=== PATIENT | male | born 1995 | race Caucasian/White ===

== ENCOUNTER 2017-12-22 21:44 | Inpatient (IN) | payer MEDICAID ==
[~2017-12-22] VITALS: Ht 172.7 cm; Wt 67.5 kg
[~2017-12-22 21:44] MED LIST: AMLO10TA4 PO; CALC0.258 PO; CALC500T11 PO; LABE100T PO; PRAV20TA PO; SIRO0.5T PO; TACR1CAP28 PO
[2017-12-22 22:27] LABS: BASOPHILS # (AUTO) 0.1 X10'3 (0-0.2); BASOPHILS % (AUTO) 0.8 % (0-1); EOSINOPHILS # (AUTO) 0.6 X10'3 (0-0.9); EOSINOPHILS % (AUTO) 6.3 % (0-6); HEMATOCRIT 28.3 % (42.0-52.0); HEMOGLOBIN 9.3 g/dl (14.0-17.9); LYMPHOCYTES # (AUTO) 1.5 X10'3 (1.1-4.8); LYMPHOCYTES % (AUTO) 15.3 % (21-51); MEAN CORPUSCULAR HEMOGLOBIN 28.1 PG (27.0-31.0); MEAN CORPUSCULAR HGB CONC 32.8 % (33.0-36.5); MEAN CORPUSCULAR VOLUME 85.7 FL (78-98); MEAN PLATELET VOLUME 7.5 FL (7.4-10.4); MONOCYTES # (AUTO) 0.9 X10'3 (0-0.9); MONOCYTES % (AUTO) 9.2 % (2-12); NEUTROPHILS # (AUTO) 6.6 X10'3 (1.8-7.7); NEUTROPHILS % (AUTO) 68.4 % (42-75); PLATELET COUNT 426 X10'3 (140-440); RED BLOOD COUNT 3.31 X10'6 (4.70-6.10); RED CELL DISTRIBUTION WIDTH 16.7 % (11.5-14.5); WHITE BLOOD COUNT 9.7 X10'3 (4.5-11.0)
[2017-12-22 22:37] LABS: INR 1.1 INR; PROTHROMBIN TIME 11.2 SECONDS (9.0-12.0)
[2017-12-22 22:44] LABS: ALANINE AMINOTRANSFERASE 20 U/L (12-78); ALBUMIN 2.1 G/DL (3.4-5.0); ALBUMIN/GLOBULIN RATIO 0.5 (1.1-1.5); ALKALINE PHOSPHATASE 78 IU/L (46-116); ANION GAP 12 (8-16); ASPARTATE AMINO TRANSFERASE 31 U/L (10-37); BILIRUBIN,TOTAL 0.4 MG/DL (0.1-1.0); BLOOD UREA NITROGEN 49 MG/DL (7-18); BUN/CREATININE RATIO 4.3 (5.4-32.0); CHLORIDE 101 MMOL/L (99-107); GLUCOSE 104 MG/DL (70-104); POTASSIUM 4.2 MMOL/L (3.5-5.1); SODIUM 143 MMOL/L (135-145); TOTAL CARBON DIOXIDE 29.8 MMOL/L (24-32); TOTAL PROTEIN 6.6 G/DL (6.4-8.2); eGFR 6 ML/MIN
[2017-12-22] MEDS ORDERED: nitroGLYCERIN 1gm ointment UD TP ONE (23:10)
[2017-12-22] MEDS ORDERED: iohexol 350MG/ML 100ml bottle IV ONE (23:15)
[2017-12-22 23:21] LABS: CLARITY,URINE CLOUDY (Clear); COLOR,URINE RED (Yellow); UA COLLECTION TYPE STRAIGHT CATH
[2017-12-22 23:23] LABS: BACTERIA,URINE FEW /HPF (Neg); RBC,URINE TNTC /HPF (0-2); SQUAMOUS EPITHELIAL CELL,UR FEW /LPF (FEW); WBC,URINE NONE SEEN /HPF (0-4)
[2017-12-22 23:46] LABS: ABG BASE EXCESS 4.3 mmol/L (-2.0-3.0); ABG HCO3 26.9 mmol/L (22.0-26.0); ABG OXYGEN SATURATION 93.6 % (95-98); ABG PCO2 (T) 32.5 mmHg (35.0-48.0); ABG PH (T) 7.535 (7.350-7.450); ABG PO2 (T) 68.9 mmHg (83-108); ALLEN'S TEST Positive; FCOHb 0.3 % (0.5-1.5); FMetHb 0.2 % (0.3-1.12); FO2Hb 93.1 % (94-100); RESPIRATORY RATE (OBSERVED) 22 b/min; TOTAL HEMOGLOBIN 9.3 G/dl (14.0-18.0)
[2017-12-22] MEDS ORDERED: hydrALAZINE 20mg/ml inj. IV STA (23:49)
[2017-12-22] MEDS ORDERED: levoFLOXACIN-Levaquin 500mg/D5 100 ML IV STA (23:53)
[2017-12-22] MEDS ORDERED: levoFLOXACIN-Levaquin 750MG/D5 150 ML IV STA (23:57)
[2017-12-23] VITALS (12 sets, daily range): BP systolic 117–141; BP diastolic 63–90
[2017-12-23] MEDS ORDERED: furosemide 10 MG/1 ML 10ml inj IV ONE
[2017-12-23] MEDS ORDERED: albumin (human) 25% 100 ML IV solution IV ONE
[2017-12-23] MEDS ORDERED: albuterol 2.5 MG/3 ML nebule NEB PRN (00:05)
[2017-12-23] MEDS ORDERED: acetylcysteine 200 MG/ml 4ml vial ONE (01:48)
[2017-12-23] MEDS ORDERED: labetalol 20mg/4ml (5mg/ml) syringe IV STA (03:41)
[2017-12-23] MEDS: LORazepam 2 mg/ml vial IV PRN ×2 (04:23→05:04)
[2017-12-23] MEDS ORDERED: labetalol 5mg/ml 20ml inj. IV ONE (04:26)
[2017-12-23] MEDS ORDERED: ondansetron/PF 4mg/2ml inj IV PRN (05:35)
[2017-12-23] MEDS ORDERED: labetalol 100mg tablet PO SCH (05:45)
[2017-12-23] MEDS ORDERED: amLODIPine 5mg tablet PO ONE (05:45)
[2017-12-23] MEDS: amLODIPine 5mg tablet PO SCH (05:52)
[2017-12-23] MEDS: labetalol 100mg tablet PO SCH ×2 (05:53→20:43)
[2017-12-23] MEDS ORDERED: acetylcysteine 200 MG/ml 4ml vial PO ONE ×2 (06:00)
[2017-12-23 06:55] LABS: TROPONIN I < 0.04 NG/ML (0.0-0.05)
[2017-12-23] MEDS ORDERED: heparin 1,000unit/ml 10ml vial 10 ML IV ONE (07:07)
[2017-12-23] MEDS ORDERED: albumin (human) 25% 100ml IV 100 ML IV PRN (07:10)
[2017-12-23] MEDS ORDERED: heparin 1,000 units/ml 10ml inj HE ONE ×2 (07:15)
[2017-12-23] MEDS: calcium carbonate 500mg chew tablet PO SCH ×2 (07:30→17:45)
[2017-12-23] MEDS: calcitriol 0.25mcg capsule PO SCH (08:27)
[2017-12-23] MEDS: tacrolimus anhydrous 1mg capsule PO SCH ×2 (08:27→21:30)
[2017-12-23] MEDS: pantoprazole 40 MG vial IV SCH (08:29)
[2017-12-23 08:31] LABS: ABG BASE EXCESS 0.6 mmol/L (-2.0-3.0); ABG OXYGEN SATURATION 78.1 % (95-98); ABG PCO2 (T) 33.7 mmHg (35.0-48.0); ABG PH (T) 7.471 (7.350-7.450); ABG PO2 (T) 42.7 mmHg (83-108); ALLEN'S TEST Positive; FCOHb 0.3 % (0.5-1.5); FMetHb 0.3 % (0.3-1.12); FO2Hb 77.6 % (94-100); TOTAL HEMOGLOBIN 8.4 G/dl (14.0-18.0)
[2017-12-23] MEDS ORDERED: aminophylline 250mg/10ml inj. IV PRN (08:40)
[2017-12-23] MEDS ORDERED: nitroGLYCERIN 0.4mg SUBLingual tab SL PRN (08:40)
[2017-12-23] MEDS ORDERED: regadenoson 0.4mg/5ml syringe IV ONE (08:40)
[2017-12-23] MEDS ORDERED: metoprolol tartrate 1mg/ml inj IV PRN (08:40)
[2017-12-23] MEDS: heparin, porcine 5000 units/ml vial SQ SCH ×2 (11:48→20:42)
[2017-12-23] MEDS: methylPREDNISolone sod succ 125mg/2ml vial IV SCH ×2 (14:05→20:42)
[2017-12-23] MEDS ORDERED: CALC667C5 (14:37)
[2017-12-23] MEDS ORDERED: MINO2.5T19 (14:37)
[2017-12-23] MEDS ORDERED: FERR325T28 (14:37)
[2017-12-23] MEDS ORDERED: SULF-14 (14:37)
[2017-12-23] MEDS ORDERED: LABE200T (14:37)
[2017-12-23] MEDS ORDERED: FURO40TA4 (14:37)
[2017-12-23] MEDS ORDERED: TACR1CAP (14:37)
[2017-12-23] MEDS: atorvastatin 10mg tablet PO SCH (20:42)
[2017-12-24] VITALS (15 sets, daily range): BP systolic 108–134; BP diastolic 56–84
[2017-12-24] MEDS: methylPREDNISolone sod succ 125mg/2ml vial IV SCH ×4 (02:08→21:15)
[2017-12-24 05:31] LABS: BASOPHILS % (AUTO) 0.4 % (0-1); EOSINOPHILS # (AUTO) 0.1 X10'3 (0-0.9); EOSINOPHILS % (AUTO) 1.2 % (0-6); HEMATOCRIT 25.7 % (42.0-52.0); HEMOGLOBIN 8.4 g/dl (14.0-17.9); LYMPHOCYTES # (AUTO) 0.6 X10'3 (1.1-4.8); LYMPHOCYTES % (AUTO) 9.6 % (21-51); MEAN CORPUSCULAR HEMOGLOBIN 27.7 PG (27.0-31.0); MEAN CORPUSCULAR HGB CONC 32.7 % (33.0-36.5); MEAN CORPUSCULAR VOLUME 84.8 FL (78-98); MEAN PLATELET VOLUME 7.6 FL (7.4-10.4); MONOCYTES # (AUTO) 0.1 X10'3 (0-0.9); MONOCYTES % (AUTO) 1.2 % (2-12); NEUTROPHILS # (AUTO) 5.3 X10'3 (1.8-7.7); NEUTROPHILS % (AUTO) 87.6 % (42-75); PLATELET COUNT 442 X10'3 (140-440); RED BLOOD COUNT 3.03 X10'6 (4.70-6.10); RED CELL DISTRIBUTION WIDTH 16.6 % (11.5-14.5); WHITE BLOOD COUNT 6.1 X10'3 (4.5-11.0)
[2017-12-24 05:45] LABS: INR 1.1 INR; PARTIAL THROMBOPLASTIN TIME 31 SECONDS (22-32); PROTHROMBIN TIME 11.6 SECONDS (9.0-12.0)
[2017-12-24 06:03] LABS: ALANINE AMINOTRANSFERASE 16 U/L (12-78); ALBUMIN 2.6 G/DL (3.4-5.0); ALBUMIN/GLOBULIN RATIO 0.6 (1.1-1.5); ALKALINE PHOSPHATASE 65 IU/L (46-116); ANION GAP 13 (8-16); ASPARTATE AMINO TRANSFERASE 22 U/L (10-37); BILIRUBIN,TOTAL 0.4 MG/DL (0.1-1.0); BLOOD UREA NITROGEN 38 MG/DL (7-18); CHLORIDE 100 MMOL/L (99-107); GLUCOSE 154 MG/DL (70-104); MAGNESIUM 2.6 MG/DL (1.5-2.4); SODIUM 140 MMOL/L (135-145); TOTAL CARBON DIOXIDE 27.5 MMOL/L (24-32); TOTAL PROTEIN 6.8 G/DL (6.4-8.2); eGFR 9 ML/MIN
[2017-12-24] MEDS: amLODIPine 5mg tablet PO SCH (08:05)
[2017-12-24] MEDS: heparin, porcine 5000 units/ml vial SQ SCH ×2 (08:06→21:16)
[2017-12-24] MEDS: calcitriol 0.25mcg capsule PO SCH (08:06)
[2017-12-24] MEDS: pantoprazole 40 MG vial IV SCH (08:06)
[2017-12-24] MEDS: calcium carbonate 500mg chew tablet PO SCH ×2 (08:07→17:28)
[2017-12-24] MEDS: labetalol 100mg tablet PO SCH ×2 (08:07→21:16)
[2017-12-24] MEDS: tacrolimus anhydrous 1mg capsule PO SCH ×2 (08:07→21:15)
[2017-12-24] MEDS: levoFLOXACIN-Levaquin 250mg/D5 50 ML IV SCH (08:08)
[2017-12-24] MEDS ORDERED: aminophylline inj. 10 ML IV ONE (09:46)
[2017-12-24] MEDS ORDERED: regadenoson 0.4mg/5ml syringe IV ONE (09:46)
[2017-12-24] MEDS: lactobacillus rhamnosus 10,000 MMU CELLS/CAPSULE PO SCH (17:28)
[2017-12-24] MEDS: atorvastatin 10mg tablet PO SCH (21:16)
[2017-12-25] MEDS: methylPREDNISolone sod succ 125mg/2ml vial IV SCH ×2 (01:54→07:22)
[2017-12-25 02:00] VITALS: BP 108/60
[2017-12-25 05:22] LABS: BASOPHILS % (AUTO) 0 % (0-1); EOSINOPHILS # (AUTO) 0.2 X10'3 (0-0.9); EOSINOPHILS % (AUTO) 1.1 % (0-6); HEMATOCRIT 25.3 % (42.0-52.0); HEMOGLOBIN 8.5 g/dl (14.0-17.9); LYMPHOCYTES # (AUTO) 0.6 X10'3 (1.1-4.8); LYMPHOCYTES % (AUTO) 4.3 % (21-51); MEAN CORPUSCULAR HEMOGLOBIN 27.8 PG (27.0-31.0); MEAN CORPUSCULAR HGB CONC 33.5 % (33.0-36.5); MEAN CORPUSCULAR VOLUME 83.1 FL (78-98); MEAN PLATELET VOLUME 7.6 FL (7.4-10.4); MONOCYTES # (AUTO) 0.3 X10'3 (0-0.9); MONOCYTES % (AUTO) 1.9 % (2-12); NEUTROPHILS # (AUTO) 13.8 X10'3 (1.8-7.7); NEUTROPHILS % (AUTO) 92.7 % (42-75); PLATELET COUNT 421 X10'3 (140-440); RED BLOOD COUNT 3.05 X10'6 (4.70-6.10); RED CELL DISTRIBUTION WIDTH 16.4 % (11.5-14.5); WHITE BLOOD COUNT 14.9 X10'3 (4.5-11.0)
[2017-12-25 05:34] LABS: INR 1.1 INR; PARTIAL THROMBOPLASTIN TIME 27 SECONDS (22-32); PROTHROMBIN TIME 11.4 SECONDS (9.0-12.0)
[2017-12-25 05:51] LABS: ALANINE AMINOTRANSFERASE 15 U/L (12-78); ALBUMIN 2.6 G/DL (3.4-5.0); ALBUMIN/GLOBULIN RATIO 0.7 (1.1-1.5); ALKALINE PHOSPHATASE 66 IU/L (46-116); ANION GAP 13 (8-16); ASPARTATE AMINO TRANSFERASE 19 U/L (10-37); BILIRUBIN,TOTAL 0.3 MG/DL (0.1-1.0); BLOOD UREA NITROGEN 67 MG/DL (7-18); BUN/CREATININE RATIO 6.6 (5.4-32.0); CHLORIDE 96 MMOL/L (99-107); GLUCOSE 141 MG/DL (70-104); MAGNESIUM 2.6 MG/DL (1.5-2.4); POTASSIUM 5.6 MMOL/L (3.5-5.1); SODIUM 138 MMOL/L (135-145); TOTAL CARBON DIOXIDE 28.9 MMOL/L (24-32); TOTAL PROTEIN 6.4 G/DL (6.4-8.2); eGFR 6 ML/MIN
[2017-12-25 06:51] VITALS: BP 108/51
[2017-12-25] MEDS: calcitriol 0.25mcg capsule PO SCH (07:18)
[2017-12-25] MEDS: tacrolimus anhydrous 1mg capsule PO SCH (07:18)
[2017-12-25] MEDS: calcium carbonate 500mg chew tablet PO SCH (07:19)
[2017-12-25] MEDS: lactobacillus rhamnosus 10,000 MMU CELLS/CAPSULE PO SCH (07:19)
[2017-12-25] MEDS: levoFLOXACIN-Levaquin 250mg/D5 50 ML IV SCH (07:20)
[2017-12-25] MEDS: heparin, porcine 5000 units/ml vial SQ SCH (07:20)
[2017-12-25] MEDS ORDERED: pantoprazole 40mg Tablet.DR PO SCH (07:30)
[2017-12-25] MEDS: amLODIPine 5mg tablet PO SCH (08:00)
[2017-12-25] MEDS: labetalol 100mg tablet PO SCH (08:00)
[2017-12-25 11:00] VITALS: BP 142/67
[2017-12-25] MEDS ORDERED: FURO-149 PO (11:31)
== END 2017-12-25 13:20 | disposition home or self-care (01) | DRG 194 ==
LOC: ER 21:44 → ED HOLD 12-23 00:04 → ICU 2S 12-23 08:49 → PCU 3S 12-23 15:40
PROVIDERS: ATTEND Internal Medicine Critical Care Medicine
PROC: 5A09357 Assistance with Respiratory Ventilation, Less than 24 Consecutive Hours, Continuous Positive Airway Pressure (ICD-10-PCS; principal; 2017-12-23)
PROC: 5A1D70Z Performance of Urinary Filtration, Intermittent, Less than 6 Hours Per Day (ICD-10-PCS; 2017-12-23)
DX: I13.2 Hypertensive heart and chronic kidney disease with heart failure and with stage 5 chronic kidney disease, or end stage renal disease (principal); J96.90 Respiratory failure, unspecified, unspecified whether with hypoxia or hypercapnia; G71.0 Muscular dystrophy; I50.33 Acute on chronic diastolic (congestive) heart failure; N18.6 End stage renal disease; R59.1 Generalized enlarged lymph nodes; D64.9 Anemia, unspecified; Z88.0 Allergy status to penicillin; Z91.040 Latex allergy status; Z94.0 Kidney transplant status; Z90.5 Acquired absence of kidney; Z99.2 Dependence on renal dialysis; Z79.899 Other long term (current) drug therapy; Z79.01 Long term (current) use of anticoagulants
CPT/HCPCS: 36415; 36600; 71045; 71275; 78452; 80053; 81001; 82803; 82948; 83605; 83735; 83880; 84145; 84439; 84443; 84484; 85018; 85025; 85610; 85730; 87040; 87070; 87502; 87503; 93005; 93017; 93306; 94640; 94660; 94760; 97110; 97116; 99285; A4353; A6213; A9500; C9113; G0257; J0280; J0360; J1644; J1940; J1956; J2060; J2930; J3490; J7030; J7507; P9047; Q9967

== ENCOUNTER 2018-02-25 09:45 | Emergency (ER) | payer MEDICARE, MEDICAID ==
[~2018-02-25] VITALS: Ht 172.7 cm; Wt 68.2 kg
[~2018-02-25 09:45] MED LIST changes: +CALC667C5; +CALC667C5 PO; +CHOL2000 PO; +DILT180C53 PO; +FERR325T28; +FERR325T28 PO; +FURO-149 PO; +FURO40TA4 PO; +METO50TA16 PO; +MINO2.5T19; +PRAV20TA4 PO; +SIRO1TAB6 PO; +SULF-14; +TACR1CAP PO
[2018-02-25 10:07] VITALS: BP 127/77
[2018-02-25 10:23] LABS: BASOPHILS % (AUTO) 0.3 % (0-1); EOSINOPHILS # (AUTO) 0.2 X10'3 (0-0.9); HEMOGLOBIN 8.5 g/dl (14.0-17.9); LYMPHOCYTES # (AUTO) 1.2 X10'3 (1.1-4.8); LYMPHOCYTES % (AUTO) 21.1 % (21-51); MEAN CORPUSCULAR HGB CONC 32.6 % (33.0-36.5); MEAN PLATELET VOLUME 7.3 FL (7.4-10.4); MONOCYTES # (AUTO) 0.7 X10'3 (0-0.9); MONOCYTES % (AUTO) 11.5 % (2-12); NEUTROPHILS # (AUTO) 3.7 X10'3 (1.8-7.7); NEUTROPHILS % (AUTO) 63.1 % (42-75); PLATELET COUNT 326 X10'3 (140-440); RED BLOOD COUNT 3.13 X10'6 (4.70-6.10); RED CELL DISTRIBUTION WIDTH 18.5 % (11.5-14.5); WHITE BLOOD COUNT 5.9 X10'3 (4.5-11.0)
[2018-02-25 10:47] LABS: ALANINE AMINOTRANSFERASE 12 U/L (12-78); ALBUMIN 2.3 G/DL (3.4-5.0); ALBUMIN/GLOBULIN RATIO 0.5 (1.1-1.5); ALKALINE PHOSPHATASE 71 IU/L (46-116); ANION GAP 9 (8-16); ASPARTATE AMINO TRANSFERASE 31 U/L (10-37); BILIRUBIN,TOTAL 0.3 MG/DL (0.1-1.0); BLOOD UREA NITROGEN 20 MG/DL (7-18); BUN/CREATININE RATIO 3.6 (5.4-32.0); CALCIUM 9.6 MG/DL (8.5-10.1); CHLORIDE 101 MMOL/L (99-107); CREATININE 5.58 MG/DL (0.60-1.10); GLUCOSE 104 MG/DL (70-104); POTASSIUM 3.8 MMOL/L (3.5-5.1); SODIUM 142 MMOL/L (135-145); TOTAL CARBON DIOXIDE 32.1 MMOL/L (24-32); TOTAL PROTEIN 6.8 G/DL (6.4-8.2); eGFR 13 ML/MIN
[2018-02-25] MEDS ORDERED: furosemide 20MG tablet PO ONE (11:05)
== END 2018-02-25 13:03 | disposition home or self-care (01) ==
LOC: ER 09:46
DX: R07.9 Chest pain, unspecified (principal); N18.6 End stage renal disease; J90 Pleural effusion, not elsewhere classified; Z99.2 Dependence on renal dialysis; Z94.0 Kidney transplant status; Z79.899 Other long term (current) drug therapy; Z88.0 Allergy status to penicillin
CPT/HCPCS: 36415; 71045; 80053; 83880; 85025; 93005; 99285

== ENCOUNTER 2018-05-14 20:53 | Emergency (ER) | payer MEDICARE, MEDICAID ==
[~2018-05-14] VITALS: Ht 172.7 cm; Wt 68.0 kg
[2018-05-14] MEDS ORDERED: DILTIAZEM 180 MG (21:09)
[2018-05-14] MEDS ORDERED: LABETALOL HCL 300 MG (21:09)
[2018-05-14] MEDS ORDERED: FUROSEMIDE 80 MG (21:09)
[2018-05-14] MEDS ORDERED: CALC ACETATE (21:09)
[2018-05-14] MEDS ORDERED: SIROLIMUS 1 MG (21:09)
[2018-05-14] MEDS ORDERED: METOPROLOL TARTRATE 100 MG (21:09)
[2018-05-14] MEDS ORDERED: PRAVASTATIN SODIUM 20 MG (21:09)
[2018-05-14] MEDS ORDERED: CLONIDINE HCL 0.2 MG (21:09)
[2018-05-14] MEDS ORDERED: vancomycin/NS 1 GM ADD-VANTAGE 250 ML IV ONE (21:15)
[2018-05-14 21:50] LABS: BASOPHILS % (AUTO) 0.4 % (0-1); EOSINOPHILS # (AUTO) 0.2 X10'3 (0-0.9); HEMATOCRIT 38.1 % (42.0-52.0); HEMOGLOBIN 12.5 g/dl (14.0-17.9); LYMPHOCYTES # (AUTO) 1.1 X10'3 (1.1-4.8); LYMPHOCYTES % (AUTO) 12.8 % (21-51); MEAN CORPUSCULAR HEMOGLOBIN 29.9 PG (27.0-31.0); MEAN CORPUSCULAR HGB CONC 32.7 % (33.0-36.5); MEAN CORPUSCULAR VOLUME 91.4 FL (78-98); MEAN PLATELET VOLUME 7.9 FL (7.4-10.4); MONOCYTES # (AUTO) 0.6 X10'3 (0-0.9); MONOCYTES % (AUTO) 7.3 % (2-12); NEUTROPHILS # (AUTO) 6.7 X10'3 (1.8-7.7); NEUTROPHILS % (AUTO) 77.5 % (42-75); PLATELET COUNT 179 X10'3 (140-440); RED BLOOD COUNT 4.16 X10'6 (4.70-6.10); WHITE BLOOD COUNT 8.7 X10'3 (4.5-11.0)
[2018-05-14 22:03] LABS: INR 1.2 INR; PARTIAL THROMBOPLASTIN TIME 28 SECONDS (22-32); PROTHROMBIN TIME 12.6 SECONDS (9.0-12.0)
[2018-05-14 22:39] LABS: ALANINE AMINOTRANSFERASE 78 U/L (12-78); ALBUMIN 3.2 G/DL (3.4-5.0); ALBUMIN/GLOBULIN RATIO 0.9 (1.1-1.5); ALKALINE PHOSPHATASE 79 IU/L (46-116); ANION GAP 19 (8-16); ASPARTATE AMINO TRANSFERASE 45 U/L (10-37); BILIRUBIN,TOTAL 0.8 MG/DL (0.1-1.0); BLOOD UREA NITROGEN 53 MG/DL (7-18); BUN/CREATININE RATIO 4.9 (5.4-32.0); CALCIUM 9.3 MG/DL (8.5-10.1); CHLORIDE 98 MMOL/L (99-107); CREATININE 10.85 MG/DL (0.60-1.10); GLUCOSE 90 MG/DL (70-104); MAGNESIUM 2.1 MG/DL (1.5-2.4); POTASSIUM 4.1 MMOL/L (3.5-5.1); SODIUM 140 MMOL/L (135-145); TOTAL CARBON DIOXIDE 22.7 MMOL/L (24-32); TOTAL PROTEIN 6.8 G/DL (6.4-8.2); eGFR 6 ML/MIN
[2018-05-15 00:20] VITALS: BP 166/104
== END 2018-05-15 00:23 | disposition home or self-care (01) ==
LOC: ER 20:53
DX: T82.7XXA Infection and inflammatory reaction due to other cardiac and vascular devices, implants and grafts, initial encounter (principal); R50.9 Fever, unspecified; R06.02 Shortness of breath; R19.7 Diarrhea, unspecified; Z94.0 Kidney transplant status; Z99.2 Dependence on renal dialysis; Z88.0 Allergy status to penicillin; Z91.040 Latex allergy status; Z79.899 Other long term (current) drug therapy
CPT/HCPCS: 36415; 71045; 80053; 83605; 83735; 84145; 85025; 85610; 85730; 87040; 93005; 96365; 96366; 99291; J3370

== ENCOUNTER 2018-06-27 21:40 | Emergency (ER) | payer MEDICARE, MEDICAID ==
[~2018-06-27] VITALS: Ht 172.7 cm; Wt 57.0 kg
[~2018-06-27 21:40] MED LIST changes: -CALC667C5; -CHOL2000 PO; -FERR325T28; -FERR325T28 PO; -FURO-149 PO; -LABE100T PO; +LEVO250T58 PO; +LOSA50TA37 PO; -MINO2.5T19; -PRAV20TA4 PO; -SIRO0.5T PO; -SULF-14; -TACR1CAP PO
[2018-06-27 23:00] LABS: BASOPHILS % (AUTO) 0.5 % (0-1); EOSINOPHILS # (AUTO) 0.2 X10'3 (0-0.9); EOSINOPHILS % (AUTO) 3.8 % (0-6); HEMATOCRIT 35.7 % (42.0-52.0); HEMOGLOBIN 11.9 g/dl (14.0-17.9); LYMPHOCYTES # (AUTO) 1.1 X10'3 (1.1-4.8); MEAN CORPUSCULAR HEMOGLOBIN 29.8 PG (27.0-31.0); MEAN CORPUSCULAR HGB CONC 33.3 % (33.0-36.5); MEAN CORPUSCULAR VOLUME 89.7 FL (78-98); MEAN PLATELET VOLUME 8.2 FL (7.4-10.4); MONOCYTES # (AUTO) 0.4 X10'3 (0-0.9); MONOCYTES % (AUTO) 9.3 % (2-12); NEUTROPHILS # (AUTO) 2.8 X10'3 (1.8-7.7); NEUTROPHILS % (AUTO) 61.4 % (42-75); PLATELET COUNT 162 X10'3 (140-440); RED BLOOD COUNT 3.98 X10'6 (4.70-6.10); RED CELL DISTRIBUTION WIDTH 15.9 % (11.5-14.5); WHITE BLOOD COUNT 4.6 X10'3 (4.5-11.0)
[2018-06-27 23:16] VITALS: BP 146/101
[2018-06-27 23:17] LABS: ALANINE AMINOTRANSFERASE 19 U/L (12-78); ALBUMIN 3.6 G/DL (3.4-5.0); ALKALINE PHOSPHATASE 92 IU/L (46-116); ANION GAP 10 (8-16); ASPARTATE AMINO TRANSFERASE 22 U/L (10-37); BILIRUBIN,TOTAL 0.6 MG/DL (0.1-1.0); BLOOD UREA NITROGEN 67 MG/DL (7-18); BUN/CREATININE RATIO 6.2 (5.4-32.0); CALCIUM 9.2 MG/DL (8.5-10.1); CHLORIDE 100 MMOL/L (99-107); CREATININE 10.83 MG/DL (0.60-1.10); GLUCOSE 101 MG/DL (70-104); POTASSIUM 4.1 MMOL/L (3.5-5.1); SODIUM 139 MMOL/L (135-145); TOTAL CARBON DIOXIDE 29.1 MMOL/L (24-32); TOTAL PROTEIN 7.2 G/DL (6.4-8.2); eGFR 6 ML/MIN
== END 2018-06-27 23:38 | disposition home or self-care (01) ==
LOC: ER 21:41
DX: N18.9 Chronic kidney disease, unspecified (principal); R53.1 Weakness; Z99.2 Dependence on renal dialysis; Z94.0 Kidney transplant status; Z88.0 Allergy status to penicillin; Z91.040 Latex allergy status; Z79.899 Other long term (current) drug therapy; Z90.5 Acquired absence of kidney
CPT/HCPCS: 36415; 80053; 85025; 93005; 99285

== ENCOUNTER 2018-09-25 21:18 | Emergency (ER) | payer MEDICARE, MEDICAID ==
[~2018-09-25] VITALS: Ht 172.7 cm; Wt 79.5 kg
[~2018-09-25 21:18] MED LIST changes: +LOSA50TA21 PO; -LOSA50TA37 PO
[2018-09-25 23:21] VITALS: BP 154/92
[2018-09-25] MEDS ORDERED: LIDOcaine 1.5% w/epinephrine 1:200,000 5ml ampul IJ ONE (23:55)
== END 2018-09-26 00:34 | disposition home or self-care (01) ==
LOC: ER 21:20
DX: S41.132A Puncture wound without foreign body of left upper arm, initial encounter (principal); T82.49XA Other complication of vascular dialysis catheter, initial encounter; N18.6 End stage renal disease; Z99.2 Dependence on renal dialysis; Z90.89 Acquired absence of other organs; Z94.0 Kidney transplant status; Z88.0 Allergy status to penicillin; Z91.040 Latex allergy status; Z79.899 Other long term (current) drug therapy; X58.XXXA Exposure to other specified factors, initial encounter; Y93.89 Activity, other specified; Y92.89 Other specified places as the place of occurrence of the external cause; Y99.9 Unspecified external cause status
CPT/HCPCS: 12001; 99283

== ENCOUNTER 2018-10-20 18:55 | Emergency (ER) | payer MEDICARE, MEDICAID ==
[~2018-10-20] VITALS: Ht 172.7 cm; Wt 79.5 kg
[2018-10-20] MEDS ORDERED: ondansetron/PF 4mg/2ml inj IV ONE (19:40)
[2018-10-20 20:04] LABS: BASOPHILS % (AUTO) 0.7 % (0-1); EOSINOPHILS # (AUTO) 0.2 X10'3 (0-0.9); EOSINOPHILS % (AUTO) 4.2 % (0-6); HEMATOCRIT 30.5 % (42.0-52.0); HEMOGLOBIN 10.2 g/dl (14.0-17.9); LYMPHOCYTES # (AUTO) 0.8 X10'3 (1.1-4.8); LYMPHOCYTES % (AUTO) 19.7 % (21-51); MEAN CORPUSCULAR HEMOGLOBIN 31.5 PG (27.0-31.0); MEAN CORPUSCULAR HGB CONC 33.5 % (33.0-36.5); MEAN PLATELET VOLUME 8.4 FL (7.4-10.4); MONOCYTES # (AUTO) 0.5 X10'3 (0-0.9); NEUTROPHILS # (AUTO) 2.4 X10'3 (1.8-7.7); NEUTROPHILS % (AUTO) 63.4 % (42-75); PLATELET COUNT 131 X10'3 (140-440); RED BLOOD COUNT 3.24 X10'6 (4.70-6.10); RED CELL DISTRIBUTION WIDTH 14.4 % (11.5-14.5); WHITE BLOOD COUNT 3.8 X10'3 (4.5-11.0)
[2018-10-20 20:21] LABS: ALANINE AMINOTRANSFERASE 16 U/L (12-78); ALBUMIN 3.5 G/DL (3.4-5.0); ALBUMIN/GLOBULIN RATIO 1.1 (1.1-1.5); ALKALINE PHOSPHATASE 128 IU/L (46-116); ANION GAP 7 (8-16); ASPARTATE AMINO TRANSFERASE 18 U/L (10-37); BLOOD UREA NITROGEN 20 MG/DL (7-18); CALCIUM 8.7 MG/DL (8.5-10.1); CHLORIDE 102 MMOL/L (99-107); CREATININE 5.04 MG/DL (0.60-1.10); GLUCOSE 98 MG/DL (70-104); LIPASE 122 U/L (73-393); POTASSIUM 3.2 MMOL/L (3.5-5.1); SODIUM 142 MMOL/L (135-145); TOTAL CARBON DIOXIDE 33.1 MMOL/L (24-32); TOTAL PROTEIN 6.7 G/DL (6.4-8.2); eGFR 14 ML/MIN
[2018-10-20] MEDS ORDERED: ONDA4TAB6 PO (20:45)
[2018-10-20 20:56] VITALS: BP 135/84
== END 2018-10-20 20:58 | disposition home or self-care (01) ==
LOC: ER 18:56
DX: N18.6 End stage renal disease (principal); R11.2 Nausea with vomiting, unspecified; R19.7 Diarrhea, unspecified; Z99.2 Dependence on renal dialysis; Z94.0 Kidney transplant status; Z88.0 Allergy status to penicillin; Z91.040 Latex allergy status; Z79.899 Other long term (current) drug therapy
CPT/HCPCS: 36415; 80053; 83690; 85025; 96374; 99284; J2405

== ENCOUNTER 2018-11-14 11:08 | Emergency (ER) | payer MEDICARE, MEDICAID ==
[~2018-11-14] VITALS: Ht 172.7 cm; Wt 68.0 kg
[~2018-11-14 11:08] MED LIST changes: +ONDA4TAB6 PO
[2018-11-14 12:01] LABS: BASOPHILS % (AUTO) 0.7 % (0-1); EOSINOPHILS # (AUTO) 0.3 X10'3 (0-0.9); EOSINOPHILS % (AUTO) 6.2 % (0-6); HEMATOCRIT 32.4 % (42.0-52.0); HEMOGLOBIN 10.9 g/dl (14.0-17.9); LYMPHOCYTES # (AUTO) 0.8 X10'3 (1.1-4.8); MEAN CORPUSCULAR HEMOGLOBIN 31.7 PG (27.0-31.0); MEAN CORPUSCULAR HGB CONC 33.5 % (33.0-36.5); MEAN CORPUSCULAR VOLUME 94.7 FL (78-98); MONOCYTES # (AUTO) 0.4 X10'3 (0-0.9); MONOCYTES % (AUTO) 7.3 % (2-12); NEUTROPHILS # (AUTO) 3.7 X10'3 (1.8-7.7); NEUTROPHILS % (AUTO) 69.8 % (42-75); PLATELET COUNT 129 X10'3 (140-440); RED BLOOD COUNT 3.42 X10'6 (4.70-6.10); RED CELL DISTRIBUTION WIDTH 14.5 % (11.5-14.5); WHITE BLOOD COUNT 5.3 X10'3 (4.5-11.0)
[2018-11-14 12:21] LABS: ALANINE AMINOTRANSFERASE 15 U/L (12-78); ALBUMIN 3.8 G/DL (3.4-5.0); ALBUMIN/GLOBULIN RATIO 1.2 (1.1-1.5); ALKALINE PHOSPHATASE 128 IU/L (46-116); ANION GAP 14 (8-16); ASPARTATE AMINO TRANSFERASE 17 U/L (10-37); BLOOD UREA NITROGEN 39 MG/DL (7-18); CALCIUM 8.8 MG/DL (8.5-10.1); CHLORIDE 100 MMOL/L (99-107); CREATININE 7.78 MG/DL (0.60-1.10); GLUCOSE 91 MG/DL (70-104); POTASSIUM 4.2 MMOL/L (3.5-5.1); SODIUM 142 MMOL/L (135-145); TOTAL CARBON DIOXIDE 28.3 MMOL/L (24-32); TOTAL PROTEIN 6.9 G/DL (6.4-8.2); eGFR 9 ML/MIN
[2018-11-14 12:25] LABS: INR 1.3 INR; PROTHROMBIN TIME 12.6 SECONDS (9.0-12.0)
[2018-11-14 12:44] LABS: LIPASE 104 U/L (73-393)
[2018-11-14 12:58] VITALS: BP 166/88
== END 2018-11-14 13:16 | disposition home or self-care (01) ==
LOC: ER 11:09
DX: R10.12 Left upper quadrant pain (principal); N18.6 End stage renal disease; Z99.2 Dependence on renal dialysis; Z94.0 Kidney transplant status; Z90.89 Acquired absence of other organs; Z88.0 Allergy status to penicillin; Z91.040 Latex allergy status; Z79.899 Other long term (current) drug therapy
CPT/HCPCS: 36415; 71045; 74176; 80053; 83690; 85025; 85610; 99284

== ENCOUNTER 2018-11-18 14:58 | Emergency (ER) | payer MEDICARE, MEDICAID ==
[~2018-11-18] VITALS: Ht 170.2 cm; Wt 68.2 kg
[~2018-11-18 14:58] MED LIST changes: -LOSA50TA21 PO; +LOSA50TA64 PO
[2018-11-18 15:58] VITALS: BP 156/96
[2018-11-18 16:39] LABS: BASOPHILS % (AUTO) 0.8 % (0-1); EOSINOPHILS # (AUTO) 0.3 X10'3 (0-0.9); EOSINOPHILS % (AUTO) 6.2 % (0-6); LYMPHOCYTES # (AUTO) 1.1 X10'3 (1.1-4.8); LYMPHOCYTES % (AUTO) 23.1 % (21-51); MEAN CORPUSCULAR HEMOGLOBIN 31.7 PG (27.0-31.0); MEAN CORPUSCULAR HGB CONC 33.4 % (33.0-36.5); MEAN CORPUSCULAR VOLUME 94.9 FL (78-98); MEAN PLATELET VOLUME 8.6 FL (7.4-10.4); MONOCYTES # (AUTO) 0.5 X10'3 (0-0.9); MONOCYTES % (AUTO) 9.8 % (2-12); NEUTROPHILS % (AUTO) 60.1 % (42-75); PLATELET COUNT 131 X10'3 (140-440); RED BLOOD COUNT 3.47 X10'6 (4.70-6.10); RED CELL DISTRIBUTION WIDTH 14.2 % (11.5-14.5); WHITE BLOOD COUNT 4.9 X10'3 (4.5-11.0)
[2018-11-18 16:44] LABS: ALANINE AMINOTRANSFERASE 17 U/L (12-78); ALBUMIN/GLOBULIN RATIO 1.3 (1.1-1.5); ALKALINE PHOSPHATASE 136 IU/L (46-116); ANION GAP 13 (8-16); ASPARTATE AMINO TRANSFERASE 18 U/L (10-37); BLOOD UREA NITROGEN 40 MG/DL (7-18); BUN/CREATININE RATIO 5.6 (5.4-32.0); CALCIUM 8.9 MG/DL (8.5-10.1); CHLORIDE 101 MMOL/L (99-107); CREATININE 7.14 MG/DL (0.60-1.10); GLUCOSE 90 MG/DL (70-104); POTASSIUM 3.8 MMOL/L (3.5-5.1); SODIUM 144 MMOL/L (135-145); TOTAL CARBON DIOXIDE 30.4 MMOL/L (24-32); TOTAL PROTEIN 7.2 G/DL (6.4-8.2); eGFR 10 ML/MIN
[2018-11-18] MEDS ORDERED: ondansetron 4mg rapidly disintigrating tab PO ONE (17:50)
[2018-11-18] MEDS ORDERED: ONDA8TAB6 PO (17:55)
== END 2018-11-18 18:25 | disposition home or self-care (01) ==
LOC: ER 14:58
DX: R11.10 Vomiting, unspecified (principal); R10.9 Unspecified abdominal pain; L98.8 Other specified disorders of the skin and subcutaneous tissue; Z94.0 Kidney transplant status; Z90.89 Acquired absence of other organs; Z99.2 Dependence on renal dialysis; Z79.899 Other long term (current) drug therapy; Z88.0 Allergy status to penicillin; Z91.040 Latex allergy status
CPT/HCPCS: 36415; 80053; 85025; 99283

== ENCOUNTER 2018-12-15 19:38 | Emergency (ER) | payer MEDICARE, MEDICAID ==
[~2018-12-15] VITALS: Ht 170.2 cm; Wt 65.0 kg
[~2018-12-15 19:38] MED LIST changes: +ONDA8TAB6 PO
[2018-12-15 19:47] VITALS: BP 151/96
[2018-12-15] MEDS ORDERED: ondansetron 4mg rapidly disintigrating tab PO ONE (20:50)
--- NOTE | 2018-12-15 21:48 | NUR ---
[facility] CALLED FOR PATIENT TO BE TRANSPORTED BACK HOME. ETA 40 MINUTES.
== END 2018-12-15 22:35 | disposition home or self-care (01) ==
LOC: ER 19:39
DX: R11.0 Nausea (principal); N28.9 Disorder of kidney and ureter, unspecified; Z99.2 Dependence on renal dialysis; Z88.0 Allergy status to penicillin; Z91.040 Latex allergy status; Z79.899 Other long term (current) drug therapy; Z87.440 Personal history of urinary (tract) infections; Z94.0 Kidney transplant status; Z90.5 Acquired absence of kidney
CPT/HCPCS: 99282

== ENCOUNTER 2019-01-13 17:10 | Emergency (ER) | payer MEDICARE, MEDICAID ==
[~2019-01-13] VITALS: Ht 170.2 cm; Wt 68.2 kg
[2019-01-13 18:19] LABS: BASOPHILS % (AUTO) 0.8 % (0-1); EOSINOPHILS # (AUTO) 0.2 X10'3 (0-0.9); EOSINOPHILS % (AUTO) 3.4 % (0-6); HEMOGLOBIN 11.6 g/dl (14.0-17.9); LYMPHOCYTES # (AUTO) 0.8 X10'3 (1.1-4.8); LYMPHOCYTES % (AUTO) 15.6 % (21-51); MEAN CORPUSCULAR HGB CONC 34.2 g/dL (33.0-36.5); MEAN CORPUSCULAR VOLUME 96.3 FL (78-98); MEAN PLATELET VOLUME 7.5 FL (7.4-10.4); MONOCYTES # (AUTO) 0.5 X10'3 (0-0.9); MONOCYTES % (AUTO) 9.9 % (2-12); NEUTROPHILS # (AUTO) 3.7 X10'3 (1.8-7.7); NEUTROPHILS % (AUTO) 70.3 % (42-75); PLATELET COUNT 144 X10'3 (140-440); RED BLOOD COUNT 3.53 X10'6 (4.70-6.10); RED CELL DISTRIBUTION WIDTH 13.9 % (11.5-14.5); WHITE BLOOD COUNT 5.3 X10'3 (4.5-11.0)
[2019-01-13 18:34] LABS: ALANINE AMINOTRANSFERASE 22 U/L (12-78); ALBUMIN 3.6 G/DL (3.4-5.0); ALBUMIN/GLOBULIN RATIO 1.1 (1.1-1.5); ALKALINE PHOSPHATASE 164 IU/L (46-116); ANION GAP 12 (8-16); ASPARTATE AMINO TRANSFERASE 18 U/L (10-37); BLOOD UREA NITROGEN 40 MG/DL (7-18); BUN/CREATININE RATIO 6.2 (5.4-32.0); CALCIUM 8.7 MG/DL (8.5-10.1); CHLORIDE 104 MMOL/L (99-107); CREATININE 6.42 MG/DL (0.60-1.10); GLUCOSE 86 MG/DL (70-104); LIPASE 108 U/L (73-393); POTASSIUM 5.1 MMOL/L (3.5-5.1); SODIUM 145 MMOL/L (135-145); TOTAL CARBON DIOXIDE 28.7 MMOL/L (24-32); eGFR 11 ML/MIN
[2019-01-13] MEDS ORDERED: diphenhydrAMINE 50 mg/ml inj IV ONE (18:55)
[2019-01-13] MEDS ORDERED: ondansetron/PF 4mg/2ml inj IV ONE (18:55)
[2019-01-13] MEDS ORDERED: proCHLORperazine 10 MG/2 ml inj IV ONE (18:55)
[2019-01-13] MEDS ORDERED: normal saline 1000ml 1,000 ML IV ONE (18:55)
[2019-01-13] MEDS ORDERED: LORazepam 2 mg/ml vial IV ONE (18:55)
[2019-01-13] MEDS ORDERED: pantoprazole 40 MG vial IV ONE (18:55)
[2019-01-13] MEDS ORDERED: METO5TAB98 PO (18:57)
[2019-01-13] MEDS ORDERED: PANT-47 PO (18:57)
--- NOTE | 2019-01-13 19:06 | NUR ---
Disccused pt's renal status and fluid restrictions with Dr Joyce; NS bolus cancelled.
[2019-01-13 21:56] VITALS: BP 134/84
== END 2019-01-13 21:58 | disposition home or self-care (01) ==
LOC: ER 17:11
DX: R11.10 Vomiting, unspecified (principal); Z90.89 Acquired absence of other organs; Z99.2 Dependence on renal dialysis; Z94.0 Kidney transplant status; Z88.0 Allergy status to penicillin; Z91.040 Latex allergy status; Z79.899 Other long term (current) drug therapy
CPT/HCPCS: 36415; 80053; 83690; 85025; 96374; 96375; 99284; C9113; J0780; J1200; J2060; J2405

== ENCOUNTER 2019-01-20 11:03 | Inpatient (IN) | payer MEDICARE, MEDICAID | END 2019-01-21 13:51 | disposition home or self-care (01) | LOC: ER 11:03 → ED HOLD 12:39 → CICU 2S 13:52 | DX: J18.9 Pneumonia, unspecified organism (principal); N18.6 End stage renal disease; Y95 Nosocomial condition; Z99.2 Dependence on renal dialysis; E87.5 Hyperkalemia ==

== ENCOUNTER 2019-02-02 18:55 | Emergency (ER) | payer MEDICARE, MEDICAID ==
[~2019-02-02] VITALS: Ht 172.7 cm; Wt 69.2 kg
[~2019-02-02 18:55] MED LIST changes: -AMLO10TA4 PO; -CALC0.258 PO; -CALC667C5 PO; +CLON0.2T PO; +FERR325T32 PO; -FURO40TA4 PO; +FURO80TA3 PO; +LABE300T2 PO; -LEVO250T58 PO; +LORA1TAB PO; -METO50TA16 PO; -ONDA4TAB6 PO; -ONDA8TAB6 PO; +PANT40TA4 PO; +SEVE800T8 PO; -TACR1CAP28 PO
--- NOTE | 2019-02-02 19:08 | NUR ---
Pressure device was in place from dialysis, per EMT-P, "they can be removed now" per instructions from dialysis. Devices removed, and bandaids placed.
--- NOTE | 2019-02-02 19:20 | NUR ---
Spoke with "Toni" at Poison Control, from a "poisoning stand-point" "do not anticipate issues, recommend r/o other possible ingestions with ASA/APAP/Etc level".
--- NOTE | 2019-02-02 19:25 | NUR ---
ERP informed of Poison-Control Recommendations
[2019-02-02] MEDS ORDERED: LABE300T2 PO (19:39)
[2019-02-02] MEDS ORDERED: LIDO5CRE2 TP (19:39)
[2019-02-02] MEDS ORDERED: SIRO1TAB6 PO (19:39)
[2019-02-02] MEDS ORDERED: METO5TAB98 PO (19:39)
[2019-02-02] MEDS ORDERED: PANT-47 PO (19:39)
[2019-02-02] MEDS ORDERED: ONDA8TAB12 PO (19:39)
[2019-02-02] MEDS ORDERED: FURO80TA3 PO (19:39)
[2019-02-02] MEDS ORDERED: SEVE800T8 PO (19:39)
[2019-02-02] MEDS ORDERED: LORA1TAB PO (19:39)
[2019-02-02] MEDS ORDERED: NITR0.4T51 SL (19:39)
[2019-02-02] MEDS ORDERED: CALC668T PO (19:39)
[2019-02-02] MEDS ORDERED: DILT180C10 PO (19:39)
--- NOTE | 2019-02-02 19:43 | NUR ---
Up to CT, will wait for telepsych consult initiation until after his return.
[2019-02-02 19:44] LABS: BASOPHILS # (AUTO) 0.1 X10'3 (0-0.2); BASOPHILS % (AUTO) 1.9 % (0-1); EOSINOPHILS # (AUTO) 0.2 X10'3 (0-0.9); HEMATOCRIT 33.8 % (42.0-52.0); HEMOGLOBIN 11.6 g/dl (14.0-17.9); LYMPHOCYTES % (AUTO) 26.2 % (21-51); MEAN CORPUSCULAR HEMOGLOBIN 32.5 PG (27.0-31.0); MEAN CORPUSCULAR HGB CONC 34.4 g/dL (33.0-36.5); MEAN CORPUSCULAR VOLUME 94.8 FL (78-98); MEAN PLATELET VOLUME 8.2 FL (7.4-10.4); MONOCYTES # (AUTO) 0.5 X10'3 (0-0.9); MONOCYTES % (AUTO) 13.4 % (2-12); NEUTROPHILS # (AUTO) 2.1 X10'3 (1.8-7.7); NEUTROPHILS % (AUTO) 53.5 % (42-75); PLATELET COUNT 144 X10'3 (140-440); RED BLOOD COUNT 3.57 X10'6 (4.70-6.10); RED CELL DISTRIBUTION WIDTH 13.7 % (11.5-14.5); WHITE BLOOD COUNT 3.9 X10'3 (4.5-11.0)
--- NOTE | 2019-02-02 19:46 | NUR ---
Spoke with ERP regarding urine sample with dialysis patient, per ERP, with patient's h/o bladder augmentation and dialysis, patient does not void...discontinue UA.
[2019-02-02 19:54] LABS: ALANINE AMINOTRANSFERASE 31 U/L (12-78); ALBUMIN 3.4 G/DL (3.4-5.0); ALKALINE PHOSPHATASE 191 IU/L (46-116); ANION GAP 10 (8-16); ASPARTATE AMINO TRANSFERASE 31 U/L (10-37); BILIRUBIN,TOTAL 0.8 MG/DL (0.1-1.0); BLOOD UREA NITROGEN 32 MG/DL (7-18); BUN/CREATININE RATIO 7.1 (5.4-32.0); CALCIUM 8.6 MG/DL (8.5-10.1); CHLORIDE 101 MMOL/L (99-107); GLUCOSE 112 MG/DL (70-104); POTASSIUM 3.4 MMOL/L (3.5-5.1); SODIUM 142 MMOL/L (135-145); TOTAL CARBON DIOXIDE 30.8 MMOL/L (24-32); TOTAL PROTEIN 6.7 G/DL (6.4-8.2); eGFR 16 ML/MIN
[2019-02-02 19:59] LABS: ACETAMINOPHEN < 2.0 UG/ML (10-30); ETHANOL < 0.010 GM/DL (0.0-0.010)
--- NOTE | 2019-02-02 20:23 | NUR ---
Telepsych consult initiated
--- NOTE | 2019-02-02 21:11 | NUR ---
Report endorsed to Telepsych, starting consultation at this time.
--- NOTE | 2019-02-02 22:16 | NUR ---
.PT MED CLEARED FOR MH. SBAR OFF TO OVERFLOW, PT MOVING FROM MAIN ED TO OF
--- NOTE | 2019-02-02 22:35 | NUR ---
Report given, patient to ER OF 27
--- NOTE | 2019-02-02 22:43 | NUR ---
Received report from Emmanuel LANGFORD, Then received call from Kathy at [facility] who I provided an update on patient. Patient is resting calmly on right side, vital signs stable, BP slightly elevated, states that he is still having thoughts of wanting to hurt oneself. Will continue to monitor.
--- NOTE | 2019-02-02 23:16 | NUR ---
Packet sent to [facility]. Telephoned to confirm whether packet had arrived, but [facility] office had closed for the evening.
--- NOTE | 2019-02-03 00:37 | NUR ---
Covering for RN Lunch break: Patient is resting in bed with eyes closed. Resp are even and unlabored. Appearing to sleep comfortably without concerns or issues noted. Will continue to monitor.
[2019-02-03 05:30] VITALS: BP 135/92
[2019-02-03] MEDS ORDERED: ondansetron 4mg rapidly disintigrating tab PO PRN (10:04)
[2019-02-03] MEDS ORDERED: sevelamer carbonate 800mg tablet PO SCH (12:30)
[2019-02-03] MEDS ORDERED: calcium acetate 667mg (PhosLO) capsule PO SCH (12:30)
[2019-02-03] MEDS ORDERED: furosemide 40mg tablet PO SCH (13:00)
[2019-02-03] MEDS ORDERED: LORazepam 1 MG tablet PO PRN (20:00)
[2019-02-03] MEDS ORDERED: labetalol 100mg tablet PO SCH (20:00)
[2019-02-03] MEDS ORDERED: cloNIDine 0.1 mg tablet PO SCH (20:00)
[2019-02-03] MEDS ORDERED: diltiazem CD 180mg cap (once-daily) PO SCH (21:00)
[2019-02-04] MEDS ORDERED: pantoprazole 40mg Tablet.DR PO SCH (08:00)
== END 2019-02-03 12:06 ==
LOC: ER 18:55
DX: R45.851 Suicidal ideations (principal); F41.9 Anxiety disorder, unspecified; R17 Unspecified jaundice; R10.84 Generalized abdominal pain; R07.89 Other chest pain; Z88.0 Allergy status to penicillin; Z91.040 Latex allergy status; Z79.899 Other long term (current) drug therapy; Z90.5 Acquired absence of kidney; Z94.0 Kidney transplant status; Z87.440 Personal history of urinary (tract) infections; Z99.2 Dependence on renal dialysis
CPT/HCPCS: 36415; 71045; 74176; 80053; 80320; 80329; 85025; 93005; 99284; J8597

== ENCOUNTER 2019-04-13 13:28 | Emergency (ER) | payer MEDICARE, MEDICAID ==
[~2019-04-13] VITALS: Ht 172.7 cm; Wt 68.2 kg
[~2019-04-13 13:28] MED LIST changes: -CALC500T11 PO; +CALC668T PO; +DILT180C10 PO; -DILT180C53 PO; -FERR325T32 PO; +LIDO5CRE2 TP; -LOSA50TA64 PO; +METO5TAB98 PO; +NITR0.4T51 SL; +ONDA8TAB12 PO; +PANT-47 PO; -PANT40TA4 PO; -PRAV20TA PO
[2019-04-13 15:11] VITALS: BP 164/121
== END 2019-04-13 15:28 | disposition home or self-care (01) ==
LOC: ER 13:28
DX: R06.02 Shortness of breath (principal); R05 Cough; N18.6 End stage renal disease; Z99.2 Dependence on renal dialysis; Z94.0 Kidney transplant status; Z98.890 Other specified postprocedural states; Z88.0 Allergy status to penicillin; Z91.040 Latex allergy status; Z79.899 Other long term (current) drug therapy
CPT/HCPCS: 71045; 93005; 99284

== ENCOUNTER 2019-06-17 10:50 | Emergency (ER) | payer MEDICARE, MEDICAID ==
[~2019-06-17] VITALS: Ht 170.2 cm; Wt 75.0 kg
[2019-06-17 11:34] LABS: BASOPHILS # (AUTO) 0.1 X10'3 (0-0.2); BASOPHILS % (AUTO) 1.3 % (0-1); EOSINOPHILS # (AUTO) 0.3 X10'3 (0-0.9); EOSINOPHILS % (AUTO) 3.8 % (0-6); HEMATOCRIT 33.7 % (42.0-52.0); HEMOGLOBIN 11.7 g/dl (14.0-17.9); LYMPHOCYTES # (AUTO) 0.9 X10'3 (1.1-4.8); LYMPHOCYTES % (AUTO) 11.2 % (21-51); MEAN CORPUSCULAR HEMOGLOBIN 32.8 PG (27.0-31.0); MEAN CORPUSCULAR HGB CONC 34.6 g/dL (33.0-36.5); MEAN CORPUSCULAR VOLUME 94.6 FL (78-98); MEAN PLATELET VOLUME 7.9 FL (7.4-10.4); MONOCYTES # (AUTO) 0.8 X10'3 (0-0.9); MONOCYTES % (AUTO) 9.7 % (2-12); NEUTROPHILS # (AUTO) 6.2 X10'3 (1.8-7.7); PLATELET COUNT 168 X10'3 (140-440); RED BLOOD COUNT 3.56 X10'6 (4.70-6.10); RED CELL DISTRIBUTION WIDTH 13.8 % (11.5-14.5); WHITE BLOOD COUNT 8.4 X10'3 (4.5-11.0)
[2019-06-17 11:46] LABS: PARTIAL THROMBOPLASTIN TIME 29 SECONDS (22-32)
[2019-06-17 11:54] LABS: ALANINE AMINOTRANSFERASE 34 U/L (12-78); ALBUMIN 2.7 G/DL (3.4-5.0); ALBUMIN/GLOBULIN RATIO 0.8 (1.1-1.5); ALKALINE PHOSPHATASE 245 IU/L (46-116); ANION GAP 8 (8-16); ASPARTATE AMINO TRANSFERASE 28 U/L (10-37); BLOOD UREA NITROGEN 38 MG/DL (7-18); BUN/CREATININE RATIO 6.6 (5.4-32.0); CALCIUM 8.1 MG/DL (8.5-10.1); CHLORIDE 104 MMOL/L (99-107); GLUCOSE 107 MG/DL (70-104); POTASSIUM 4.1 MMOL/L (3.5-5.1); SODIUM 139 MMOL/L (135-145); eGFR 12 ML/MIN
[2019-06-17] MEDS ORDERED: morphine 2 MG/ML inj. syringe IV ONE ×2 (12:05→14:00)
[2019-06-17] MEDS ORDERED: ONDA4TAB6 PO (14:38)
[2019-06-17] MEDS ORDERED: HYDR-3965 PO (14:38)
--- NOTE | 2019-06-17 15:20 | NUR ---
CALLED [phone] TO HELP PT GET TRANSPORTATION HOME PT UNABLE TO DIAL OUT OF ROOM.
[2019-06-17 15:57] VITALS: BP 145/109
== END 2019-06-17 16:00 | disposition home or self-care (01) ==
LOC: ER 10:51
DX: K80.50 Calculus of bile duct without cholangitis or cholecystitis without obstruction (principal); R11.10 Vomiting, unspecified; R10.31 Right lower quadrant pain; R10.11 Right upper quadrant pain; Z90.89 Acquired absence of other organs; Z94.0 Kidney transplant status; Z99.2 Dependence on renal dialysis; Z88.0 Allergy status to penicillin; Z91.040 Latex allergy status; Z79.899 Other long term (current) drug therapy
CPT/HCPCS: 36415; 71045; 76700; 80053; 83605; 84145; 84484; 85025; 85610; 85730; 87040; 93005; 96374; 96376; 99284; J2270

== ENCOUNTER 2019-06-18 19:40 | Emergency (ER) | payer MEDICARE, MEDICAID ==
[~2019-06-18] VITALS: Ht 170.2 cm; Wt 79.5 kg
[~2019-06-18 19:40] MED LIST changes: +HYDR-3965 PO; +ONDA4TAB6 PO
[2019-06-18 20:44] LABS: BASOPHILS # (AUTO) 0.1 X10'3 (0-0.2); EOSINOPHILS # (AUTO) 0.3 X10'3 (0-0.9); HEMOGLOBIN 11.2 g/dl (14.0-17.9); LYMPHOCYTES # (AUTO) 1.1 X10'3 (1.1-4.8); MONOCYTES # (AUTO) 0.6 X10'3 (0-0.9); WHITE BLOOD COUNT 4.7 X10'3 (4.5-11.0)
[2019-06-18 20:47] LABS: BASOPHILS % (AUTO) 1.5 % (0-1); EOSINOPHILS % (AUTO) 6.6 % (0-6); HEMATOCRIT 31.9 % (42.0-52.0); LYMPHOCYTES % (AUTO) 23.2 % (21-51); MEAN CORPUSCULAR HEMOGLOBIN 33.1 PG (27.0-31.0); MEAN CORPUSCULAR VOLUME 94.6 FL (78-98); MEAN PLATELET VOLUME 7.7 FL (7.4-10.4); MONOCYTES % (AUTO) 12.9 % (2-12); NEUTROPHILS # (AUTO) 2.6 X10'3 (1.8-7.7); NEUTROPHILS % (AUTO) 55.8 % (42-75); PLATELET COUNT 159 X10'3 (140-440); RED BLOOD COUNT 3.37 X10'6 (4.70-6.10); RED CELL DISTRIBUTION WIDTH 13.6 % (11.5-14.5)
[2019-06-18 20:58] LABS: ALANINE AMINOTRANSFERASE 32 U/L (12-78); ALBUMIN 2.8 G/DL (3.4-5.0); ALBUMIN/GLOBULIN RATIO 0.8 (1.1-1.5); ALKALINE PHOSPHATASE 249 IU/L (46-116); ANION GAP 6 (8-16); ASPARTATE AMINO TRANSFERASE 19 U/L (10-37); BILIRUBIN,TOTAL 1.1 MG/DL (0.1-1.0); BLOOD UREA NITROGEN 25 MG/DL (7-18); BUN/CREATININE RATIO 5.9 (5.4-32.0); CALCIUM 7.8 MG/DL (8.5-10.1); CHLORIDE 102 MMOL/L (99-107); CREATININE 4.23 MG/DL (0.60-1.10); GLUCOSE 101 MG/DL (70-104); LIPASE 120 U/L (73-393); POTASSIUM 3.4 MMOL/L (3.5-5.1); SODIUM 140 MMOL/L (135-145); TOTAL CARBON DIOXIDE 31.9 MMOL/L (24-32); TOTAL PROTEIN 6.2 G/DL (6.4-8.2); eGFR 17 ML/MIN
[2019-06-19] MEDS ORDERED: HYDROcodone/acetaminophen 10/325mg tab PO ONE (00:05)
--- NOTE | 2019-06-19 00:38 | NUR ---
PT UNABLE TO PROVIDE URINE STATES HE IS ON DIALYSIS AND DOES NOT PRODUCE URINE, DUSTIN GILMORE NOTIFIED.
[2019-06-19] MEDS ORDERED: SULF1TAB49 PO (01:02)
[2019-06-19] MEDS ORDERED: HYDR-4383 PO (01:05)
[2019-06-19] MEDS ORDERED: CIP750T PO (01:34)
[2019-06-19 01:45] VITALS: BP 140/86
== END 2019-06-19 01:49 | disposition home or self-care (01) ==
LOC: ER 19:41
DX: L03.316 Cellulitis of umbilicus (principal); Z94.0 Kidney transplant status; Z90.5 Acquired absence of kidney; Z98.890 Other specified postprocedural states; Z99.2 Dependence on renal dialysis; Z88.0 Allergy status to penicillin; Z91.040 Latex allergy status; Z79.899 Other long term (current) drug therapy
CPT/HCPCS: 36415; 74176; 80053; 83690; 85025; 85610; 99284

== ENCOUNTER 2019-06-27 18:49 | Emergency (ER) | payer MEDICARE, MEDICAID ==
[~2019-06-27] VITALS: Ht 172.7 cm; Wt 68.0 kg
[~2019-06-27 18:49] MED LIST changes: +CIP750T PO; -HYDR-3965 PO; +HYDR-4383 PO; +SULF1TAB49 PO
[2019-06-27 19:43] LABS: PARTIAL THROMBOPLASTIN TIME 28 SECONDS (22-32)
[2019-06-27 19:45] LABS: BASOPHILS # (AUTO) 0.1 X10'3 (0-0.2); BASOPHILS % (AUTO) 1.2 % (0-1); EOSINOPHILS # (AUTO) 0.5 X10'3 (0-0.9); EOSINOPHILS % (AUTO) 7.1 % (0-6); HEMATOCRIT 31.9 % (42.0-52.0); LYMPHOCYTES # (AUTO) 1.1 X10'3 (1.1-4.8); MEAN CORPUSCULAR HEMOGLOBIN 32.8 PG (27.0-31.0); MEAN CORPUSCULAR HGB CONC 34.4 g/dL (33.0-36.5); MEAN CORPUSCULAR VOLUME 95.4 FL (78-98); MONOCYTES # (AUTO) 0.7 X10'3 (0-0.9); MONOCYTES % (AUTO) 10.6 % (2-12); NEUTROPHILS # (AUTO) 4.3 X10'3 (1.8-7.7); NEUTROPHILS % (AUTO) 64.1 % (42-75); PLATELET COUNT 194 X10'3 (140-440); RED BLOOD COUNT 3.34 X10'6 (4.70-6.10); RED CELL DISTRIBUTION WIDTH 14.1 % (11.5-14.5); WHITE BLOOD COUNT 6.8 X10'3 (4.5-11.0)
[2019-06-27 19:46] LABS: ALANINE AMINOTRANSFERASE 28 U/L (12-78); ALBUMIN 2.6 G/DL (3.4-5.0); ALBUMIN/GLOBULIN RATIO 0.8 (1.1-1.5); ALKALINE PHOSPHATASE 226 IU/L (46-116); ANION GAP 6 (8-16); ASPARTATE AMINO TRANSFERASE 17 U/L (10-37); BILIRUBIN,TOTAL 0.8 MG/DL (0.1-1.0); BLOOD UREA NITROGEN 27 MG/DL (7-18); BUN/CREATININE RATIO 6.3 (5.4-32.0); CALCIUM 8.4 MG/DL (8.5-10.1); CHLORIDE 104 MMOL/L (99-107); GLUCOSE 97 MG/DL (70-104); MAGNESIUM 1.9 MG/DL (1.5-2.4); PHOSPHORUS 3.4 MG/DL (2.3-4.5); POTASSIUM 3.6 MMOL/L (3.5-5.1); SODIUM 143 MMOL/L (135-145); TOTAL CARBON DIOXIDE 32.9 MMOL/L (24-32); TOTAL PROTEIN 5.7 G/DL (6.4-8.2); eGFR 17 ML/MIN
[2019-06-27 20:55] VITALS: BP 134/74
== END 2019-06-27 20:57 | disposition home or self-care (01) ==
LOC: ER 18:50
DX: R07.89 Other chest pain (principal); N18.6 End stage renal disease; Z99.2 Dependence on renal dialysis; Z94.0 Kidney transplant status; Z88.0 Allergy status to penicillin; Z91.040 Latex allergy status; Z79.2 Long term (current) use of antibiotics; Z79.899 Other long term (current) drug therapy
CPT/HCPCS: 36415; 71045; 80053; 83735; 84100; 84484; 85025; 85610; 85730; 93005; 99284

== ENCOUNTER 2019-07-14 07:34 | Inpatient (IN) | payer MEDICARE, MEDICAID ==
[2019-07-13 14:18] LABS: BASOPHILS # (AUTO) 0.1 X10'3 (0-0.2); BASOPHILS % (AUTO) 1.4 % (0-1); EOSINOPHILS # (AUTO) 0.4 X10'3 (0-0.9); EOSINOPHILS % (AUTO) 5.2 % (0-6); LYMPHOCYTES # (AUTO) 1.2 X10'3 (1.1-4.8); LYMPHOCYTES % (AUTO) 18.1 % (21-51); MEAN CORPUSCULAR HEMOGLOBIN 32.8 PG (27.0-31.0); MEAN CORPUSCULAR HGB CONC 34.2 g/dL (33.0-36.5); MEAN CORPUSCULAR VOLUME 96.1 FL (78-98); MEAN PLATELET VOLUME 7.6 FL (7.4-10.4); MONOCYTES # (AUTO) 0.7 X10'3 (0-0.9); MONOCYTES % (AUTO) 9.6 % (2-12); NEUTROPHILS # (AUTO) 4.5 X10'3 (1.8-7.7); NEUTROPHILS % (AUTO) 65.7 % (42-75); PRE OP HEMATOCRIT 33.1 % (42.0-52.0); PRE OP HEMOGLOBIN 11.3 g/dL (14.0-17.9); PRE OP PLATELET COUNT 192 X10'3 (140-440); RED BLOOD COUNT 3.45 X10'6 (4.70-6.10); RED CELL DISTRIBUTION WIDTH 13.7 % (11.5-14.5)
[2019-07-13 14:26] LABS: PRE OP INR 1.1 INR; PRE OP PROTIME 10.9 SECONDS (9.0-12.0)
[2019-07-13 14:30] LABS: ALBUMIN 2.6 G/DL (3.4-5.0); ALBUMIN/GLOBULIN RATIO 0.8 (1.1-1.5); ALKALINE PHOSPHATASE 225 IU/L (46-116); BLOOD UREA NITROGEN 44 MG/DL (7-18); BUN/CREATININE RATIO 6.1 (5.4-32.0); CALCIUM 7.6 MG/DL (8.5-10.1); CHLORIDE 105 MMOL/L (99-107); CREATININE 7.27 MG/DL (0.60-1.10); PRE OP ALT 32 U/L (30-65); PRE OP ANION GAP 7 (8-16); PRE OP AST 17 U/L (10-37); PRE OP BILIRUB, TOTAL 0.9 MG/DL (0.0-1.0); PRE OP GLUCOSE 116 MG/DL (70-104); PRE OP POTASSIUM 4.5 MMOL/L (3.4-5.1); PRE OP SODIUM 144 MMOL/L (135-145); TOTAL CARBON DIOXIDE 31.6 MMOL/L (24-32); TOTAL PROTEIN 5.8 G/DL (6.4-8.2); eGFR 9 ML/MIN
[2019-07-14] VITALS (22 sets, daily range): BP systolic 126–146; BP diastolic 72–93
[~2019-07-14] VITALS: Ht 172.7 cm; Wt 67.2 kg
[~2019-07-14 07:34] MED LIST changes: -SULF1TAB49 PO
[2019-07-14] MEDS ORDERED: normal saline 1000ml 1,000 ML IV SCH (07:45)
[2019-07-14] MEDS ORDERED: famotidine 20mg tablet PO ONE (07:45)
[2019-07-14] MEDS ORDERED: vancomycin inj 1,500 MG in normal saline 300ml IV soln IV ONE (07:45)
[2019-07-14] MEDS ORDERED: DOCUMENT DATE & TIME OF BETA-BLOCKER PO ONE (07:45)
[2019-07-14] MEDS ORDERED: INDOCYANINE GREEN 25 MG VIAL IV ONE (08:15)
[2019-07-14] MEDS ORDERED: LIDOcaine 1% (10mg/ml) 2ml vial ONE (08:19)
[2019-07-14] MEDS ORDERED: LIDOcaine 1% 30ml preserv. free vial ONE (09:13)
[2019-07-14] MEDS ORDERED: BUPIVAcaine/PF 2.5 mg/ml (0.25%) 30ml vial ONE (09:13)
[2019-07-14] MEDS ORDERED: sugammadex 200mg/2ml injection IV ONE (09:21)
[2019-07-14] MEDS ORDERED: ringers solution, lacted 1,000 ML IV SCH (09:22)
[2019-07-14] MEDS ORDERED: morphine 4 MG/ML inj SYRINge IV PRN ×2 (09:25)
[2019-07-14] MEDS ORDERED: hydrALAZINE 20mg/ml inj. IV PRN (09:25)
[2019-07-14] MEDS ORDERED: fentaNYL/PF 50MCG/1 ML 2ML syringe IV PRN ×2 (09:25)
[2019-07-14] MEDS ORDERED: ondansetron/PF 4mg/2ml inj IV PRN (09:25)
[2019-07-14] MEDS ORDERED: labetalol 20mg/4ml (5mg/ml) syringe IV PRN (09:25)
[2019-07-14] MEDS ORDERED: fentaNYL/PF 50MCG/1 ML 2ML syringe ONE (09:27)
[2019-07-14] MEDS ORDERED: midazolam 2 mg/2 ml injection ONE (09:28)
[2019-07-14] MEDS ORDERED: rocuronium 10mg/ml inj IV ONE (09:28)
[2019-07-14] MEDS ORDERED: etomidate 2mg/ml inj. ONE (09:28)
--- NOTE | 2019-07-14 09:30 | NUR ---
CALLED DR. ROBLES REGARDING PT NOT HAVING AN IV PRIOR TO SURGERY. IV INITIATION ATTEMPTED TO RIGHT ARM X 3. DR. ORTEGA STATES OK TO SEND PT TO OR WITHOUT IV AND STATES HE WILL START IV IN THE OPERATING ROOM. PT AGREEABLE TO PLAN.
[2019-07-14] MEDS ORDERED: sevoflurane 250ml liquid IH ONE (09:39)
[2019-07-14] MEDS ORDERED: albumin (Human) 5% 250ml 250 ML IV ONE (09:43)
[2019-07-14] MEDS ORDERED: CALC500T11 PO (13:28)
[2019-07-14] MEDS ORDERED: SODI650T29 PO (13:28)
[2019-07-14] MEDS ORDERED: CALC0.258 PO (13:28)
[2019-07-14] MEDS ORDERED: LISI-600 PO (13:28)
[2019-07-14] MEDS ORDERED: AMLO10TA4 PO (13:28)
[2019-07-14] MEDS ORDERED: PRAV20TA PO (13:28)
[2019-07-14] MEDS ORDERED: FERR324T4 PO (13:28)
[2019-07-14] MEDS ORDERED: TACR1CAP28 PO (13:28)
--- NOTE | 2019-07-14 13:53 | NUR ---
INITIAL CHARTING STATRTED ON PAPER AT 1153.
[2019-07-14] MEDS ORDERED: ONDA4TAB6 PO (13:54)
[2019-07-14] MEDS ORDERED: CARV-49 PO (13:54)
[2019-07-14] MEDS ORDERED: SIRO1TAB6 PO (13:57)
--- NOTE | 2019-07-14 15:53 | NUR ---
Report called to receiving nurse. Transferred via [facility] . Special Issues communicated to receiving nurse. AWAKE AND ORIENTED. VITALS STABLE. DRESSINGS DI. JOAN LEAKING SEROS FLUID AROUND THE INSERTION SITE. MD IS AWARE. STATES PAIN IMPROVING. TO SURGICAL RM 355A AT TNIS TIME.
--- NOTE | 2019-07-14 16:14 | NUR ---
PATIENT TO ROOM 355A VIA BED ACCOMPANIED BY X1 STAFF. PATIENT ORIENTED TO ROOM AND CALL LIGHT. CALL LIGHT WITHIN PATIENT'S REACH, BED LOW AND LOCKED.
[2019-07-14] MEDS: HYDROmorphone/NS 1 mg/ml CADD 50 ML IV SCH ×5 (17:00→23:00)
--- NOTE | 2019-07-14 18:20 | NUR ---
Problems reprioritized. Patient report given, questions answered & plan of care reviewed with BRAXTON LANGFORD.
[2019-07-14] MEDS: furosemide 40mg tablet PO SCH (20:55)
[2019-07-14] MEDS: carvedilol 6.25mg tablet PO SCH (20:56)
[2019-07-14] MEDS: sodium bicarbonate 650mg tablet PO SCH (20:56)
[2019-07-14] MEDS: calcium carbonate 500mg chew tablet PO SCH (20:56)
[2019-07-14] MEDS: labetalol 100mg tablet PO SCH (20:56)
[2019-07-14] MEDS: tacrolimus anhydrous 1mg capsule PO SCH (20:56)
--- NOTE | 2019-07-14 22:55 | NUR ---
Patient in room [facility] 355. I have received report from PRIMITIVO Quigley and had the opportunity to ask questions and assume patient care. Addendum: 07/14/19 at 2256 by Xi Camacho RN Amended: Links added.
[2019-07-15 00:19] VITALS: BP 128/83
[2019-07-15] MEDS: HYDROmorphone/NS 1 mg/ml CADD 50 ML IV SCH ×12 (01:00→23:00)
[2019-07-15 05:20] LABS: BASOPHILS # (AUTO) 0.1 X10'3 (0-0.2); BASOPHILS % (AUTO) 1.1 % (0-1); EOSINOPHILS # (AUTO) 0.1 X10'3 (0-0.9); EOSINOPHILS % (AUTO) 0.6 % (0-6); HEMOGLOBIN 11.3 g/dl (14.0-17.9); LYMPHOCYTES # (AUTO) 1.6 X10'3 (1.1-4.8); LYMPHOCYTES % (AUTO) 17.8 % (21-51); MEAN CORPUSCULAR HEMOGLOBIN 32.6 PG (27.0-31.0); MEAN CORPUSCULAR HGB CONC 34.1 g/dL (33.0-36.5); MEAN CORPUSCULAR VOLUME 95.6 FL (78-98); MEAN PLATELET VOLUME 7.6 FL (7.4-10.4); MONOCYTES # (AUTO) 1.1 X10'3 (0-0.9); MONOCYTES % (AUTO) 11.9 % (2-12); NEUTROPHILS # (AUTO) 6.2 X10'3 (1.8-7.7); NEUTROPHILS % (AUTO) 68.6 % (42-75); PLATELET COUNT 210 X10'3 (140-440); RED BLOOD COUNT 3.45 X10'6 (4.70-6.10); RED CELL DISTRIBUTION WIDTH 14.1 % (11.5-14.5)
[2019-07-15 05:32] LABS: ALANINE AMINOTRANSFERASE 26 U/L (12-78); ALBUMIN 2.3 G/DL (3.4-5.0); ALBUMIN/GLOBULIN RATIO 0.9 (1.1-1.5); ALKALINE PHOSPHATASE 171 IU/L (46-116); ANION GAP 12 (8-16); ASPARTATE AMINO TRANSFERASE 18 U/L (10-37); BILIRUBIN,TOTAL 1.3 MG/DL (0.1-1.0); BLOOD UREA NITROGEN 28 MG/DL (7-18); BUN/CREATININE RATIO 4.9 (5.4-32.0); CALCIUM 7.6 MG/DL (8.5-10.1); CHLORIDE 105 MMOL/L (99-107); CREATININE 5.74 MG/DL (0.60-1.10); GLUCOSE 105 MG/DL (70-104); POTASSIUM 5.5 MMOL/L (3.5-5.1); SODIUM 143 MMOL/L (135-145); TOTAL CARBON DIOXIDE 26.5 MMOL/L (24-32); TOTAL PROTEIN 4.9 G/DL (6.4-8.2); eGFR 12 ML/MIN
--- NOTE | 2019-07-15 06:39 | NUR ---
Problems reprioritized. Patient report given, questions answered & plan of care reviewed with PRIMITIVO Childress. Addendum: 07/15/19 at 0639 by Xi Camacho RN Amended: Links added.
--- NOTE | 2019-07-15 07:18 | NUR ---
Patient in room M[facility] 355. I have received report from Xi LANGFORD and had the opportunity to ask questions and assume patient care.
[2019-07-15 07:29] VITALS: BP 109/63
[2019-07-15] MEDS: lisinopril 20mg tablet PO SCH (08:00)
[2019-07-15] MEDS: labetalol 100mg tablet PO SCH ×2 (08:00→21:11)
[2019-07-15] MEDS: amLODIPine 5mg tablet PO SCH (08:00)
[2019-07-15] MEDS: furosemide 40mg tablet PO SCH ×3 (09:47→21:12)
[2019-07-15] MEDS: calcium carbonate 500mg chew tablet PO SCH ×2 (09:48→21:12)
[2019-07-15] MEDS: carvedilol 6.25mg tablet PO SCH ×2 (09:48→21:11)
[2019-07-15] MEDS: tacrolimus anhydrous 1mg capsule PO SCH ×2 (09:49→21:23)
[2019-07-15] MEDS: sodium bicarbonate 650mg tablet PO SCH ×2 (09:49→21:12)
[2019-07-15] MEDS ORDERED: normal saline 1000ml 100 ML IV PRN (09:58)
[2019-07-15 11:00] VITALS: BP_SYST 101; BP_SYST 115; BP_DIAS 61; BP_DIAS 68
[2019-07-15] MEDS ORDERED: LIDOcaine 1% (10mg/ml) 2ml vial SQ ONE (14:30)
--- NOTE | 2019-07-15 18:30 | NUR ---
Problems reprioritized. Patient report given, questions answered & plan of care reviewed with Rima Aguirre RN.
[2019-07-15 20:00] VITALS: BP 109/58
[2019-07-16 00:16] VITALS: BP 91/58
[2019-07-16] MEDS: HYDROmorphone/NS 1 mg/ml CADD 50 ML IV SCH ×12 (01:00→23:00)
--- NOTE | 2019-07-16 06:34 | NUR ---
Problems reprioritized. Patient report given, questions answered & plan of care reviewed with PRIMITIVO Childress.
[2019-07-16 07:34] VITALS: BP 104/60
[2019-07-16] MEDS: sodium bicarbonate 650mg tablet PO SCH ×2 (08:00→20:00)
[2019-07-16] MEDS: calcium carbonate 500mg chew tablet PO SCH ×2 (08:02→20:48)
[2019-07-16] MEDS: tacrolimus anhydrous 1mg capsule PO SCH ×2 (08:03→20:47)
[2019-07-16] MEDS: furosemide 40mg tablet PO SCH ×3 (08:04→20:47)
[2019-07-16] MEDS: amLODIPine 5mg tablet PO SCH (08:05)
[2019-07-16] MEDS: carvedilol 6.25mg tablet PO SCH ×2 (08:05→20:46)
[2019-07-16] MEDS: lisinopril 20mg tablet PO SCH (08:05)
[2019-07-16] MEDS: ondansetron/PF 4mg/2ml inj IV PRN (08:07)
[2019-07-16] MEDS: labetalol 100mg tablet PO SCH ×2 (08:07→20:46)
[2019-07-16 11:00] VITALS: BP 83/48
[2019-07-16] MEDS ORDERED: diphenhydrAMINE 25mg capsule PO PRN (12:40)
[2019-07-16 13:46] LABS: BASOPHILS # (AUTO) 0.1 X10'3 (0-0.2); BASOPHILS % (AUTO) 0.7 % (0-1); EOSINOPHILS # (AUTO) 0.6 X10'3 (0-0.9); EOSINOPHILS % (AUTO) 5.4 % (0-6); HEMATOCRIT 37.7 % (42.0-52.0); HEMOGLOBIN 12.8 g/dl (14.0-17.9); LYMPHOCYTES # (AUTO) 1.3 X10'3 (1.1-4.8); LYMPHOCYTES % (AUTO) 12.7 % (21-51); MEAN CORPUSCULAR HEMOGLOBIN 32.5 PG (27.0-31.0); MEAN CORPUSCULAR VOLUME 95.6 FL (78-98); MEAN PLATELET VOLUME 7.1 FL (7.4-10.4); MONOCYTES # (AUTO) 1.4 X10'3 (0-0.9); MONOCYTES % (AUTO) 13.6 % (2-12); NEUTROPHILS # (AUTO) 7.1 X10'3 (1.8-7.7); NEUTROPHILS % (AUTO) 67.6 % (42-75); PLATELET COUNT 222 X10'3 (140-440); RED BLOOD COUNT 3.95 X10'6 (4.70-6.10); RED CELL DISTRIBUTION WIDTH 14.7 % (11.5-14.5); WHITE BLOOD COUNT 10.5 X10'3 (4.5-11.0)
[2019-07-16 13:59] LABS: ALANINE AMINOTRANSFERASE 20 U/L (12-78); ALBUMIN 2.1 G/DL (3.4-5.0); ALBUMIN/GLOBULIN RATIO 0.8 (1.1-1.5); ALKALINE PHOSPHATASE 145 IU/L (46-116); ANION GAP 5 (8-16); ASPARTATE AMINO TRANSFERASE 19 U/L (10-37); BILIRUBIN,TOTAL 1.9 MG/DL (0.1-1.0); BLOOD UREA NITROGEN 20 MG/DL (7-18); BUN/CREATININE RATIO 4.2 (5.4-32.0); CALCIUM 7.5 MG/DL (8.5-10.1); CHLORIDE 103 MMOL/L (99-107); GLUCOSE 92 MG/DL (70-104); POTASSIUM 4.6 MMOL/L (3.5-5.1); SODIUM 140 MMOL/L (135-145); TOTAL CARBON DIOXIDE 31.6 MMOL/L (24-32); TOTAL PROTEIN 4.9 G/DL (6.4-8.2); eGFR 15 ML/MIN
--- NOTE | 2019-07-16 18:30 | NUR ---
Problems reprioritized. Patient report given, questions answered & plan of care reviewed with Vazquez LANGFORD.
[2019-07-16 20:00] VITALS: BP 117/67
[2019-07-17] VITALS (31 sets, daily range): BP systolic 65–146; BP diastolic 27–90
[2019-07-17] MEDS: ondansetron/PF 4mg/2ml inj IV PRN (00:19)
[2019-07-17] MEDS: HYDROmorphone/NS 1 mg/ml CADD 50 ML IV SCH ×12 (01:00→23:00)
[2019-07-17 05:57] LABS: ALANINE AMINOTRANSFERASE 19 U/L (12-78); ALBUMIN/GLOBULIN RATIO 0.7 (1.1-1.5); ALKALINE PHOSPHATASE 146 IU/L (46-116); ANION GAP 12 (8-16); ASPARTATE AMINO TRANSFERASE 20 U/L (10-37); BILIRUBIN,TOTAL 2.6 MG/DL (0.1-1.0); BLOOD UREA NITROGEN 28 MG/DL (7-18); BUN/CREATININE RATIO 4.7 (5.4-32.0); CALCIUM 7.9 MG/DL (8.5-10.1); CHLORIDE 101 MMOL/L (99-107); GLUCOSE 105 MG/DL (70-104); POTASSIUM 4.7 MMOL/L (3.5-5.1); SODIUM 141 MMOL/L (135-145); TOTAL CARBON DIOXIDE 28.4 MMOL/L (24-32); eGFR 12 ML/MIN
--- NOTE | 2019-07-17 06:30 | NUR ---
Patient report given, questions answered & plan of care reviewed with HARI LANGFORD.
[2019-07-17] MEDS: furosemide 40mg tablet PO SCH ×3 (08:00→22:45)
[2019-07-17] MEDS: sodium bicarbonate 650mg tablet PO SCH ×2 (08:00→22:48)
[2019-07-17] MEDS: calcium carbonate 500mg chew tablet PO SCH ×2 (08:00→22:45)
[2019-07-17] MEDS: carvedilol 6.25mg tablet PO SCH ×2 (09:15→22:46)
[2019-07-17] MEDS: amLODIPine 5mg tablet PO SCH (09:16)
[2019-07-17] MEDS: labetalol 100mg tablet PO SCH ×2 (09:17→23:41)
[2019-07-17] MEDS: lisinopril 20mg tablet PO SCH (09:18)
[2019-07-17] MEDS: tacrolimus anhydrous 1mg capsule PO SCH ×2 (09:22→22:45)
--- NOTE | 2019-07-17 10:22 | NUR ---
Noted that patient has been refusing meals since admission on 07/15, menu fulfillment representative is meeting with patient daily to plan meals, offered chicken breast sandwich to patient for lunch today, OK by MARTIN to provide off menu item. Addendum: 07/17/19 at [address] Amended: Links added.
[2019-07-17] MEDS ORDERED: MIDAZolam 5mg/5ml vial ONE (15:24)
[2019-07-17] MEDS ORDERED: fentaNYL/PF 50MCG/1 ML 2ML syringe ONE (15:24)
[2019-07-17] MEDS ORDERED: levoFLOXACIN-Levaquin 500mg/D5 100 ML IV ONE (15:25)
[2019-07-17] MEDS ORDERED: LIDOcaine Viscous 15ml cup ONE (15:25)
[2019-07-17] MEDS ORDERED: iohexol 300 MG/1 ML 50ml polymer ONE (15:25)
[2019-07-17] MEDS ORDERED: glucagon, human recombinant 1mg kit ONE (15:25)
[2019-07-17] MEDS ORDERED: diphenhydrAMINE 50 mg/ml inj ONE (15:41)
--- NOTE | 2019-07-17 18:00 | NUR ---
Patient in GI Lab. I have received report from Greer LANGFORD and had the opportunity to ask questions and assume patient care.
--- NOTE | 2019-07-17 18:20 | NUR ---
GAVE REPORT TO ADAM BELLO PT. STILL IN GI LAB.
[2019-07-18] VITALS: BP 112/53
[2019-07-18] MEDS: HYDROmorphone/NS 1 mg/ml CADD 50 ML IV SCH ×12 (01:00→23:00)
--- NOTE | 2019-07-18 06:50 | NUR ---
Problems reprioritized. Patient report given, questions answered & plan of care reviewed with Edith LANGFORD.
[2019-07-18 07:00] VITALS: BP 104/54
[2019-07-18 07:55] LABS: ALANINE AMINOTRANSFERASE 14 U/L (12-78); ALBUMIN 1.6 G/DL (3.4-5.0); ALBUMIN/GLOBULIN RATIO 0.6 (1.1-1.5); ALKALINE PHOSPHATASE 122 IU/L (46-116); ANION GAP 14 (8-16); ASPARTATE AMINO TRANSFERASE 18 U/L (10-37); BILIRUBIN,TOTAL 1.8 MG/DL (0.1-1.0); BLOOD UREA NITROGEN 41 MG/DL (7-18); BUN/CREATININE RATIO 5.4 (5.4-32.0); CALCIUM 7.6 MG/DL (8.5-10.1); CHLORIDE 102 MMOL/L (99-107); CREATININE 7.63 MG/DL (0.60-1.10); GLUCOSE 69 MG/DL (70-104); POTASSIUM 4.7 MMOL/L (3.5-5.1); SODIUM 141 MMOL/L (135-145); TOTAL CARBON DIOXIDE 24.7 MMOL/L (24-32); TOTAL PROTEIN 4.4 G/DL (6.4-8.2); eGFR 9 ML/MIN
[2019-07-18] MEDS ORDERED: normal saline 1000ml 250 ML IV PRN (08:00)
[2019-07-18] MEDS: lisinopril 20mg tablet PO SCH (08:00)
[2019-07-18] MEDS: labetalol 100mg tablet PO SCH ×2 (08:00→22:34)
[2019-07-18] MEDS ORDERED: heparin 1,000 units/ml 10ml inj IV ONE (08:00)
[2019-07-18] MEDS: carvedilol 6.25mg tablet PO SCH ×2 (08:00→22:32)
[2019-07-18] MEDS: amLODIPine 5mg tablet PO SCH (08:00)
[2019-07-18] MEDS ORDERED: LIDOcaine 1% (10mg/ml) 2ml vial SQ ONE (08:00)
[2019-07-18] MEDS: furosemide 40mg tablet PO SCH ×3 (08:14→22:33)
[2019-07-18] MEDS: sodium bicarbonate 650mg tablet PO SCH ×2 (08:14→20:00)
[2019-07-18] MEDS: calcium carbonate 500mg chew tablet PO SCH ×2 (08:14→22:33)
[2019-07-18] MEDS: tacrolimus anhydrous 1mg capsule PO SCH ×2 (08:14→22:32)
[2019-07-18] MEDS ORDERED: diatr meglu/diatrizoate 30ml oral sol.-(3 dose) bottle PO ONE (15:00)
[2019-07-18] MEDS ORDERED: iohexol 300mg/ml 100ml inj. ONE (18:06)
--- NOTE | 2019-07-18 18:43 | NUR ---
patient jhaving dialysis at this time. was seen by Dr mccullough, CT with contrast ordered. patient NPO for test still scheduled for 2000hrs. Report given to Darius LANGFORD
[2019-07-18 19:00] VITALS: BP 99/52
--- NOTE | 2019-07-18 20:30 | NUR ---
Pt. remains on NPO for CT scan procedure as ordered. Pt. was transported to CT scan via w/c. Addendum: 07/19/19 at 0651 by Radha Simmons RN Amended: Links added.
--- NOTE | 2019-07-18 21:40 | NUR ---
Pt. returned from CT scan via w/c. On assessment, Pt; Anival in place intact with mild c/o pain reported. Pt. sitting up in bed eating a subway sandwich. Call light within reach. Addendum: 07/19/19 at 0691 by Radha Simmons RN Amended: Links added.
[2019-07-19] MEDS: HYDROmorphone/NS 1 mg/ml CADD 50 ML IV SCH ×12 (01:00→23:00)
--- NOTE | 2019-07-19 05:40 | NUR ---
Pt. c/o n/v at this time. On assessment emesis of 100 cc noted without foul smell brewer in color. Iv zofran given at this time. Will continue monitoring. Addendum: 07/19/19 at 0651 by Radha Simmons RN Amended: Links added.
[2019-07-19] MEDS: ondansetron/PF 4mg/2ml inj IV PRN (05:49)
[2019-07-19 06:01] LABS: BASOPHILS % (AUTO) 0.6 % (0-1); EOSINOPHILS # (AUTO) 0.6 X10'3 (0-0.9); EOSINOPHILS % (AUTO) 9.6 % (0-6); HEMATOCRIT 31.4 % (42.0-52.0); LYMPHOCYTES % (AUTO) 14.5 % (21-51); MEAN CORPUSCULAR HEMOGLOBIN 32.7 PG (27.0-31.0); MEAN CORPUSCULAR HGB CONC 35.1 g/dL (33.0-36.5); MEAN CORPUSCULAR VOLUME 93.1 FL (78-98); MEAN PLATELET VOLUME 6.6 FL (7.4-10.4); MONOCYTES # (AUTO) 0.8 X10'3 (0-0.9); MONOCYTES % (AUTO) 12.8 % (2-12); NEUTROPHILS # (AUTO) 4.1 X10'3 (1.8-7.7); NEUTROPHILS % (AUTO) 62.5 % (42-75); PLATELET COUNT 214 X10'3 (140-440); RED BLOOD COUNT 3.37 X10'6 (4.70-6.10); RED CELL DISTRIBUTION WIDTH 14.3 % (11.5-14.5); WHITE BLOOD COUNT 6.6 X10'3 (4.5-11.0)
[2019-07-19 06:22] LABS: ALANINE AMINOTRANSFERASE 14 U/L (12-78); ALBUMIN 1.7 G/DL (3.4-5.0); ALBUMIN/GLOBULIN RATIO 0.5 (1.1-1.5); ALKALINE PHOSPHATASE 196 IU/L (46-116); ANION GAP 8 (8-16); ASPARTATE AMINO TRANSFERASE 19 U/L (10-37); BILIRUBIN,TOTAL 1.3 MG/DL (0.1-1.0); BLOOD UREA NITROGEN 29 MG/DL (7-18); BUN/CREATININE RATIO 4.3 (5.4-32.0); CHLORIDE 105 MMOL/L (99-107); CREATININE 6.73 MG/DL (0.60-1.10); GLUCOSE 99 MG/DL (70-104); LIPASE 258 U/L (73-393); POTASSIUM 4.3 MMOL/L (3.5-5.1); SODIUM 145 MMOL/L (135-145); TOTAL CARBON DIOXIDE 31.6 MMOL/L (24-32); TOTAL PROTEIN 4.8 G/DL (6.4-8.2); eGFR 10 ML/MIN
[2019-07-19 06:28] LABS: CALCIUM 7.6 MG/DL (8.5-10.1)
--- NOTE | 2019-07-19 06:39 | NUR ---
Patient report given, questions answered & plan of care reviewed with Edith LANGFORD. Addendum: 07/19/19 at 0641 by Radha Simmons RN Amended: Links added.
[2019-07-19 07:00] VITALS: BP 127/71
--- NOTE | 2019-07-19 07:09 | NUR ---
Patient in room [facility] 354. I have received report from su LANGFORD and had the opportunity to ask questions and assume patient care.
[2019-07-19] MEDS: carvedilol 6.25mg tablet PO SCH ×2 (08:00→20:45)
[2019-07-19] MEDS: lisinopril 20mg tablet PO SCH (08:00)
[2019-07-19] MEDS: sodium bicarbonate 650mg tablet PO SCH ×2 (08:00→20:00)
[2019-07-19] MEDS: labetalol 100mg tablet PO SCH ×2 (08:00→20:45)
[2019-07-19] MEDS: amLODIPine 5mg tablet PO SCH (08:00)
[2019-07-19] MEDS: calcium carbonate 500mg chew tablet PO SCH ×2 (08:35→20:44)
--- NOTE | 2019-07-19 08:35 | NUR ---
Spoke with NIMA Diaz about blood pressure medications. She stated she would like to hold all BP meds for now. Will pass message on to primary RN.
[2019-07-19] MEDS: furosemide 40mg tablet PO SCH ×3 (08:36→20:45)
[2019-07-19] MEDS: tacrolimus anhydrous 1mg capsule PO SCH ×2 (08:36→20:45)
--- NOTE | 2019-07-19 08:59 | NUR ---
all B/P meds on hold today per Kathryn Diaz
[2019-07-19 11:00] VITALS: BP 119/56
[2019-07-19] MEDS ORDERED: ARGININE/GLUTAMINE/CALCIUM BMB (JUVEN 19.3GM PKT) 1 EACH POWD.PACK PO SCH (13:00)
[2019-07-19] MEDS: NUT.TX.IMP.RENAL FXN,LAC-REDUC (Nepro) 237 ML VANILLA PO SCH ×2 (13:12→18:55)
--- NOTE | 2019-07-19 14:30 | NUR ---
Initial: Pt admit s/p lap cholecystectomy still c/o N/V and abdominal pain per MD note. Pt refusing meals per EMR but noted to have had sub last night and some oatmeal this AM per MD note. RN reinforces that pt appetite remains low 0-25% meals mostly picking. Nepro TIDWM added by MD for additional protein needs. Pt hx ESRD on HD; ensure pudding TIDWM added as well for additional protein/kcal needs on HD w/ low PO hx. OK to deliver off menu items for pt given PO. Pt s/p ERCP w/ JOAN output increasing to 2780ml yesterday now down to 600ml past 24 hours. LBM 07/17. Will continue to monitor for additional protein needs on HD and further GI results for further diet modification needs. Rec: 1. continue renal diet w/ Nepro TIDWM per MD 2. ensure pudding TIDWM 3. OK to have off menu items given low PO 4. wt w/ HD Addendum: 07/19/19 at [address] Amended: Links added.
[2019-07-19 18:00] VITALS: BP 135/79
--- NOTE | 2019-07-19 18:55 | NUR ---
Problems reprioritized. Patient report given, questions answered & plan of care reviewed with LEONIDAS LANGFORD. PATIENT WAS SEEN BY DR FANG . ORDERED H.PYLORI TEST FOR LOOSE STOOL. NO OTHER NEW ORDERS.
--- NOTE | 2019-07-19 18:57 | NUR ---
Patient in room [facility] 354. I have received report from PRIMITIVO Sharma and had the opportunity to ask questions and assume patient care. Addendum: 07/19/19 at 1858 by Kasandra Terry RN Amended: Links added.
[2019-07-19 20:11] LABS: H PYLORI ANTIBODY NEGATIVE (Neg)
[2019-07-20] VITALS: BP 129/73
[2019-07-20] MEDS: HYDROmorphone/NS 1 mg/ml CADD 50 ML IV SCH ×3 (01:00→05:00)
--- NOTE | 2019-07-20 06:15 | NUR ---
Patient in room [facility] 354. I have received report from PRIMITIVO Abarca and had the opportunity to ask questions and assume patient care.
[2019-07-20 06:30] VITALS: BP 147/79
--- NOTE | 2019-07-20 06:42 | NUR ---
Problems reprioritized. Patient report given, questions answered & plan of care reviewed with PRIMITIVO Gutierrez. Addendum: 07/20/19 at 0642 by Kasandra Terry RN Amended: Links added.
[2019-07-20 06:55] LABS: BASOPHILS # (AUTO) 0.1 X10'3 (0-0.2); BASOPHILS % (AUTO) 0.9 % (0-1); EOSINOPHILS # (AUTO) 0.6 X10'3 (0-0.9); EOSINOPHILS % (AUTO) 9.8 % (0-6); HEMOGLOBIN 10.8 g/dl (14.0-17.9); LYMPHOCYTES # (AUTO) 0.9 X10'3 (1.1-4.8); MEAN CORPUSCULAR HEMOGLOBIN 32.3 PG (27.0-31.0); MEAN CORPUSCULAR HGB CONC 33.9 g/dL (33.0-36.5); MEAN CORPUSCULAR VOLUME 95.3 FL (78-98); MONOCYTES # (AUTO) 0.7 X10'3 (0-0.9); MONOCYTES % (AUTO) 11.4 % (2-12); NEUTROPHILS % (AUTO) 63.9 % (42-75); PLATELET COUNT 181 X10'3 (140-440); RED BLOOD COUNT 3.35 X10'6 (4.70-6.10); RED CELL DISTRIBUTION WIDTH 14.3 % (11.5-14.5); WHITE BLOOD COUNT 6.2 X10'3 (4.5-11.0)
[2019-07-20 07:14] LABS: ALANINE AMINOTRANSFERASE 15 U/L (12-78); ALBUMIN 1.7 G/DL (3.4-5.0); ALBUMIN/GLOBULIN RATIO 0.5 (1.1-1.5); ALKALINE PHOSPHATASE 274 IU/L (46-116); ANION GAP 11 (8-16); ASPARTATE AMINO TRANSFERASE 20 U/L (10-37); BILIRUBIN,TOTAL 1.1 MG/DL (0.1-1.0); BLOOD UREA NITROGEN 37 MG/DL (7-18); BUN/CREATININE RATIO 4.3 (5.4-32.0); CALCIUM 8.1 MG/DL (8.5-10.1); CHLORIDE 104 MMOL/L (99-107); CREATININE 8.62 MG/DL (0.60-1.10); GLUCOSE 84 MG/DL (70-104); POTASSIUM 5.3 MMOL/L (3.5-5.1); SODIUM 140 MMOL/L (135-145); TOTAL CARBON DIOXIDE 24.9 MMOL/L (24-32); TOTAL PROTEIN 4.9 G/DL (6.4-8.2); eGFR 8 ML/MIN
[2019-07-20] MEDS: sodium bicarbonate 650mg tablet PO SCH (07:56)
[2019-07-20] MEDS: labetalol 100mg tablet PO SCH (07:56)
[2019-07-20] MEDS: tacrolimus anhydrous 1mg capsule PO SCH (07:56)
[2019-07-20] MEDS: amLODIPine 5mg tablet PO SCH (07:57)
[2019-07-20] MEDS: calcium carbonate 500mg chew tablet PO SCH (07:57)
[2019-07-20] MEDS: furosemide 40mg tablet PO SCH ×2 (07:57→13:22)
[2019-07-20] MEDS: lisinopril 20mg tablet PO SCH (07:57)
[2019-07-20] MEDS: carvedilol 6.25mg tablet PO SCH (07:57)
[2019-07-20] MEDS: NUT.TX.IMP.RENAL FXN,LAC-REDUC (Nepro) 237 ML VANILLA PO SCH ×2 (07:58→13:00)
[2019-07-20] MEDS ORDERED: heparin 1,000unit/ml 10ml vial 10 ML IV ONE (08:00)
[2019-07-20] MEDS ORDERED: epoetin 20,000 units/ml inj IV ONE (08:00)
[2019-07-20] MEDS ORDERED: HYDROcodone/acetaminophen 10/325mg tab PO PRN ×2 (08:00)
[2019-07-20] MEDS ORDERED: LIDOcaine 1% (10mg/ml) 2ml vial SQ ONE (08:00)
[2019-07-20] MEDS ORDERED: normal saline 1000ml 250 ML IV PRN (08:00)
[2019-07-20] MEDS ORDERED: CADD PCA waste documentation MC PRN (08:15)
[2019-07-20 11:00] VITALS: BP 111/53
--- NOTE | 2019-07-20 12:56 | NUR ---
F/u: Pt requesting PB and J sandwich; OK by MARTIN given 0-25% meals not meeting needs. Addendum: 07/20/19 at [address] Amended: Links added.
[2019-07-20] MEDS ORDERED: PER5325T PO (15:07)
--- NOTE | 2019-07-20 17:15 | NUR ---
DC inst provided to pt & pt's mother. IV DC'd, tip intact. All belongings sent w/pt. WC to front lobby.
== END 2019-07-20 17:18 | disposition home or self-care (01) | DRG 417 ==
LOC: PAS 07:34 → SUR 3N 11:51
PROVIDERS: ADMIT Surgery; ATTEND Surgery
PROC: 0DNU4ZZ Release Omentum, Percutaneous Endoscopic Approach (ICD-10-PCS; 2019-07-14)
PROC: BF121ZZ Fluoroscopy of Gallbladder using Low Osmolar Contrast (ICD-10-PCS; 2019-07-14)
PROC: 8E0W4CZ Robotic Assisted Procedure of Trunk Region, Percutaneous Endoscopic Approach (ICD-10-PCS; 2019-07-14)
PROC: 4A133B1 Monitoring of Arterial Pressure, Peripheral, Percutaneous Approach (ICD-10-PCS; 2019-07-14)
PROC: 4A133J1 Monitoring of Arterial Pulse, Peripheral, Percutaneous Approach (ICD-10-PCS; 2019-07-14)
PROC: 0FT44ZZ Resection of Gallbladder, Percutaneous Endoscopic Approach (ICD-10-PCS; principal; 2019-07-14 09:39)
PROC: 5A1D70Z Performance of Urinary Filtration, Intermittent, Less than 6 Hours Per Day (ICD-10-PCS; 2019-07-15)
PROC: 0F7D8DZ Dilation of Pancreatic Duct with Intraluminal Device, Via Natural or Artificial Opening Endoscopic (ICD-10-PCS; 2019-07-17)
PROC: BF181ZZ Fluoroscopy of Pancreatic Ducts using Low Osmolar Contrast (ICD-10-PCS; 2019-07-17)
PROC: BW201ZZ Computerized Tomography (CT Scan) of Abdomen using Low Osmolar Contrast (ICD-10-PCS; 2019-07-18)
PROC: 5A1D70Z Performance of Urinary Filtration, Intermittent, Less than 6 Hours Per Day (ICD-10-PCS; 2019-07-18)
DX: K80.00 Calculus of gallbladder with acute cholecystitis without obstruction (principal); N18.6 End stage renal disease; K83.2 Perforation of bile duct; T86.12 Kidney transplant failure; K66.0 Peritoneal adhesions (postprocedural) (postinfection); Y83.0 Surgical operation with transplant of whole organ as the cause of abnormal reaction of the patient, or of later complication, without mention of misadventure at the time of the procedure; Z46.59 Encounter for fitting and adjustment of other gastrointestinal appliance and device; Z88.0 Allergy status to penicillin; Y92.89 Other specified places as the place of occurrence of the external cause; Z91.040 Latex allergy status
CPT/HCPCS: 36415; 43262; 74160; 80053; 82948; 83690; 84145; 85025; 85610; 85730; 86677; 87081; 88304; 97110; 97161; 97530; 99152; 99153; A4215; A4618; A4620; A6402; A7000; C1769; C1773; C9399; G0257; G0378; J1170; J1200; J1610; J1644; J1956; J2001; J2250; J2270; J2405; J3010; J3370; J3490; J7030; J7040; J7120; J7507; P9045; Q4081; Q9963; Q9967

== ENCOUNTER 2019-07-30 17:53 | Inpatient (IN) | payer MEDICARE, MEDICAID ==
[2019-07-30] VITALS (8 sets, daily range): BP systolic 124–145; BP diastolic 64–81
[~2019-07-30] VITALS: Ht 170.2 cm; Wt 66.7 kg
[~2019-07-30 17:53] MED LIST changes: +AMLO10TA4 PO; +CALC0.258 PO; +CALC500T11 PO; -CALC668T PO; +CARV-49 PO; -CIP750T PO; -CLON0.2T PO; -DILT180C10 PO; +FERR324T4 PO; -HYDR-4383 PO; -LIDO5CRE2 TP; +LISI-600 PO; -LORA1TAB PO; -METO5TAB98 PO; -NITR0.4T51 SL; -ONDA8TAB12 PO; -PANT-47 PO; +PER5325T PO; +PRAV20TA PO; -SEVE800T8 PO; +SODI650T29 PO; +TACR1CAP28 PO
[2019-07-30] MEDS ORDERED: normal saline 1000ml 1,000 ML IV ONE (18:02)
[2019-07-30] MEDS: ondansetron/PF 4mg/2ml inj IV ONE ×3 (18:05→19:26)
[2019-07-30 18:21] LABS: MONOCYTES # (AUTO) 0.6 X10'3 (0-0.9); RED CELL DISTRIBUTION WIDTH 15.4 % (11.5-14.5); WHITE BLOOD COUNT 5.9 X10'3 (4.5-11.0)
[2019-07-30 18:22] LABS: BASOPHILS # (AUTO) 0.1 X10'3 (0-0.2); BASOPHILS % (AUTO) 1.8 % (0-1); EOSINOPHILS # (AUTO) 0.4 X10'3 (0-0.9); EOSINOPHILS % (AUTO) 6.8 % (0-6); LYMPHOCYTES % (AUTO) 17.7 % (21-51); MEAN CORPUSCULAR HEMOGLOBIN 33.5 PG (27.0-31.0); MEAN CORPUSCULAR HGB CONC 35.4 g/dL (33.0-36.5); MEAN CORPUSCULAR VOLUME 94.7 FL (78-98); MEAN PLATELET VOLUME 6.9 FL (7.4-10.4); MONOCYTES % (AUTO) 10.2 % (2-12); NEUTROPHILS # (AUTO) 3.8 X10'3 (1.8-7.7); NEUTROPHILS % (AUTO) 63.5 % (42-75); PLATELET COUNT 308 X10'3 (140-440); RED BLOOD COUNT 1.32 X10'6 (4.70-6.10)
[2019-07-30 18:25] LABS: HEMATOCRIT 12.5 % (42.0-52.0); HEMOGLOBIN 4.4 g/dl (14.0-17.9)
--- NOTE | 2019-07-30 18:25 | NUR ---
LAB CALLED HGB 4.4, HCT 12.[address] MARTINS
[2019-07-30 18:42] LABS: ALANINE AMINOTRANSFERASE 44 U/L (12-78); ALBUMIN 2.3 G/DL (3.4-5.0); ALBUMIN/GLOBULIN RATIO 0.7 (1.1-1.5); ALKALINE PHOSPHATASE 297 IU/L (46-116); ANION GAP 6 (8-16); ASPARTATE AMINO TRANSFERASE 44 U/L (10-37); BILIRUBIN,TOTAL 0.4 MG/DL (0.1-1.0); BLOOD UREA NITROGEN 52 MG/DL (7-18); BUN/CREATININE RATIO 11.4 (5.4-32.0); CALCIUM 8.1 MG/DL (8.5-10.1); CHLORIDE 104 MMOL/L (99-107); CREATININE 4.56 MG/DL (0.60-1.10); GLUCOSE 98 MG/DL (70-104); LIPASE 396 U/L (73-393); MAGNESIUM 1.9 MG/DL (1.5-2.4); POTASSIUM 3.8 MMOL/L (3.5-5.1); SODIUM 144 MMOL/L (135-145); TOTAL CARBON DIOXIDE 33.9 MMOL/L (24-32); TOTAL PROTEIN 5.8 G/DL (6.4-8.2); eGFR 16 ML/MIN
[2019-07-30 18:43] LABS: PARTIAL THROMBOPLASTIN TIME 27 SECONDS (22-32)
[2019-07-30] MEDS ORDERED: pantoprazole 40 MG vial IV ONE (19:15)
[2019-07-30] MEDS ORDERED: LABE100T5 PO (19:37)
[2019-07-30] MEDS ORDERED: LABE50SY (19:37)
[2019-07-30] MEDS ORDERED: acetaminophen 325mg tablet PO PRN ×2 (20:25)
--- NOTE | 2019-07-30 21:45 | NUR ---
Patient in room PCU 3012. I have received report from Marlene LANGFORD and had the opportunity to ask questions and assume patient care.
--- NOTE | 2019-07-30 22:00 | NUR ---
first unit of blood was transfused in the ER by ER nurse prior transferring to PCU
[2019-07-30 22:16] LABS: OCCULT BLOOD STOOL POSITIVE (Neg)
[2019-07-31] VITALS (31 sets, daily range): BP systolic 112–188; BP diastolic 64–106
[2019-07-31] MEDS: oxyCODONE/APAP 5-325mg tablet PO PRN ×3 (01:52→22:04)
[2019-07-31] MEDS: temazepam 15mg capsule PO PRN ×2 (01:54→22:04)
--- NOTE | 2019-07-31 02:00 | NUR ---
hemogram was drawn after units of tranfusing, H/H is 5.5, 15.4, called NIMA Ponce, he said transfuse one more unit
[2019-07-31 02:52] LABS: BASOPHILS # (AUTO) 0.1 X10'3 (0-0.2); BASOPHILS % (AUTO) 1.3 % (0-1); EOSINOPHILS # (AUTO) 0.3 X10'3 (0-0.9); EOSINOPHILS % (AUTO) 6.4 % (0-6); LYMPHOCYTES % (AUTO) 22.5 % (21-51); MEAN CORPUSCULAR HGB CONC 35.4 g/dL (33.0-36.5); MEAN CORPUSCULAR VOLUME 90.3 FL (78-98); MEAN PLATELET VOLUME 7.9 FL (7.4-10.4); MONOCYTES # (AUTO) 0.6 X10'3 (0-0.9); NEUTROPHILS # (AUTO) 2.6 X10'3 (1.8-7.7); NEUTROPHILS % (AUTO) 56.8 % (42-75); PLATELET COUNT 212 X10'3 (140-440); RED BLOOD COUNT 1.71 X10'6 (4.70-6.10); RED CELL DISTRIBUTION WIDTH 15.9 % (11.5-14.5); WHITE BLOOD COUNT 4.6 X10'3 (4.5-11.0)
[2019-07-31 02:56] LABS: ALANINE AMINOTRANSFERASE 40 U/L (12-78); ALBUMIN 1.9 G/DL (3.4-5.0); ALBUMIN/GLOBULIN RATIO 0.7 (1.1-1.5); ALKALINE PHOSPHATASE 272 IU/L (46-116); ANION GAP 7 (8-16); ASPARTATE AMINO TRANSFERASE 49 U/L (10-37); BILIRUBIN,TOTAL 0.4 MG/DL (0.1-1.0); BLOOD UREA NITROGEN 66 MG/DL (7-18); BUN/CREATININE RATIO 12.9 (5.4-32.0); CALCIUM 7.5 MG/DL (8.5-10.1); CHLORIDE 106 MMOL/L (99-107); CREATININE 5.12 MG/DL (0.60-1.10); GLUCOSE 103 MG/DL (70-104); MAGNESIUM 1.7 MG/DL (1.5-2.4); PHOSPHORUS 3.5 MG/DL (2.3-4.5); POTASSIUM 4.3 MMOL/L (3.5-5.1); SODIUM 142 MMOL/L (135-145); TOTAL PROTEIN 4.8 G/DL (6.4-8.2); eGFR 14 ML/MIN
[2019-07-31 03:00] LABS: HEMATOCRIT 15.4 % (42.0-52.0); HEMOGLOBIN 5.5 g/dl (14.0-17.9)
--- NOTE | 2019-07-31 06:33 | NUR ---
Problems reprioritized. Patient report given, questions answered & plan of care reviewed with Viktoria LANGFORD.
--- NOTE | 2019-07-31 06:39 | NUR ---
Patient in room PCU 3012. I have received report from PRIMITIVO Dunlap and had the opportunity to ask questions and assume patient care. Patient currently resting in bed, bed locked and low, call light in reach, no acute distress, will continue to monitor.
--- NOTE | 2019-07-31 07:05 | NUR ---
spoke with Forest Ponce NP, he wants to go ahead and transfuse 4th unit of blood and then recheck hemogram.
[2019-07-31] MEDS: calcium carbonate 500mg chew tablet PO SCH ×2 (07:34→19:33)
[2019-07-31] MEDS: amLODIPine 5mg tablet PO SCH (07:34)
[2019-07-31] MEDS: calcitriol 0.25mcg capsule PO SCH (07:35)
[2019-07-31] MEDS: atorvastatin 10mg tablet PO SCH (07:35)
[2019-07-31] MEDS: furosemide 40mg tablet PO SCH (07:35)
[2019-07-31] MEDS: tacrolimus anhydrous 1mg capsule PO SCH ×2 (07:36→19:33)
[2019-07-31] MEDS: pantoprazole 40 MG vial IV SCH (07:37)
[2019-07-31] MEDS: sodium bicarbonate 650mg tablet PO SCH ×2 (07:42→20:00)
[2019-07-31] MEDS: labetalol 100mg tablet PO SCH ×2 (07:46→19:33)
[2019-07-31] MEDS ORDERED: normal saline 1000ml 100 ML IV PRN (09:38)
[2019-07-31] MEDS ORDERED: normal saline 1000ml 250 ML IV PRN (09:38)
[2019-07-31] MEDS ORDERED: epoetin 20,000 units/ml inj IV ONE (09:40)
[2019-07-31] MEDS ORDERED: LIDOcaine 1% (10mg/ml) 2ml vial SQ ONE (09:40)
[2019-07-31] MEDS ORDERED: LISI-600 PO (09:52)
[2019-07-31] MEDS ORDERED: fentaNYL/PF 50MCG/1 ML 2ML syringe ONE ×2 (13:07→14:56)
[2019-07-31] MEDS ORDERED: LIDOcaine Viscous 15ml cup ONE (13:07)
[2019-07-31] MEDS ORDERED: MIDAZolam 5mg/5ml vial ONE ×2 (13:07→15:10)
[2019-07-31] MEDS ORDERED: glucagon, human recombinant 1mg kit ONE ×2 (14:06→14:57)
[2019-07-31] MEDS ORDERED: iohexol 300 MG/1 ML 50ml polymer ONE (14:50)
[2019-07-31] MEDS ORDERED: epiNEPHrine 0.1mg/ml 10ml syringe ONE (15:03)
[2019-07-31] MEDS: ondansetron/PF 4mg/2ml inj IV PRN (17:01)
[2019-07-31 17:35] LABS: MEAN CORPUSCULAR HEMOGLOBIN 31.1 PG (27.0-31.0); MEAN CORPUSCULAR VOLUME 88.9 FL (78-98); MEAN PLATELET VOLUME 7.6 FL (7.4-10.4); PLATELET COUNT 206 X10'3 (140-440); RED BLOOD COUNT 2.24 X10'6 (4.70-6.10); RED CELL DISTRIBUTION WIDTH 15.4 % (11.5-14.5); WHITE BLOOD COUNT 7.5 X10'3 (4.5-11.0)
[2019-07-31] MEDS ORDERED: HYDROmorphone 1 mg/ml syringe IV PRN (17:35)
[2019-07-31 17:45] LABS: HEMATOCRIT 19.9 % (42.0-52.0)
--- NOTE | 2019-07-31 17:52 | NUR ---
Received critical value hemoglobin 7.0, notified Dr. Kerns, no new orders received, value is improved over previous test.
--- NOTE | 2019-07-31 18:11 | NUR ---
Problems reprioritized. Patient report given, questions answered & plan of care reviewed with Dedrick RN. patient is currently resting in bed, bed locked and low, call light in reach, dialysis in process, stable at shift change
--- NOTE | 2019-07-31 18:14 | NUR ---
Patient in room PCU 3012. I have received report from Viktoria LANGFORD and had the opportunity to ask questions and assume patient care.
[2019-08-01] VITALS (11 sets, daily range): BP systolic 118–166; BP diastolic 66–92
--- NOTE | 2019-08-01 06:15 | NUR ---
Patient in room PCU 3012. I have received report from PRIMITIVO Tse and had the opportunity to ask questions and assume patient care.
--- NOTE | 2019-08-01 06:30 | NUR ---
Problems reprioritized. Patient report given, questions answered & plan of care reviewed with Brenda Thomas RN.
[2019-08-01 06:40] LABS: BASOPHILS # (AUTO) 0.1 X10'3 (0-0.2); BASOPHILS % (AUTO) 1.8 % (0-1); EOSINOPHILS # (AUTO) 0.5 X10'3 (0-0.9); LYMPHOCYTES # (AUTO) 1.2 X10'3 (1.1-4.8); LYMPHOCYTES % (AUTO) 24.2 % (21-51); MEAN CORPUSCULAR HEMOGLOBIN 31.1 PG (27.0-31.0); MEAN CORPUSCULAR HGB CONC 35.2 g/dL (33.0-36.5); MEAN CORPUSCULAR VOLUME 88.5 FL (78-98); MEAN PLATELET VOLUME 6.9 FL (7.4-10.4); MONOCYTES # (AUTO) 0.5 X10'3 (0-0.9); MONOCYTES % (AUTO) 11.1 % (2-12); NEUTROPHILS # (AUTO) 2.5 X10'3 (1.8-7.7); NEUTROPHILS % (AUTO) 51.9 % (42-75); PLATELET COUNT 207 X10'3 (140-440); RED BLOOD COUNT 2.23 X10'6 (4.70-6.10); RED CELL DISTRIBUTION WIDTH 15.4 % (11.5-14.5); WHITE BLOOD COUNT 4.9 X10'3 (4.5-11.0)
[2019-08-01 06:48] LABS: HEMATOCRIT 19.8 % (42.0-52.0)
[2019-08-01 07:00] LABS: ALANINE AMINOTRANSFERASE 51 U/L (12-78); ALBUMIN 1.9 G/DL (3.4-5.0); ALBUMIN/GLOBULIN RATIO 0.7 (1.1-1.5); ALKALINE PHOSPHATASE 261 IU/L (46-116); ANION GAP 9 (8-16); ASPARTATE AMINO TRANSFERASE 46 U/L (10-37); BILIRUBIN,TOTAL 0.5 MG/DL (0.1-1.0); BLOOD UREA NITROGEN 37 MG/DL (7-18); BUN/CREATININE RATIO 9.9 (5.4-32.0); CALCIUM 8.2 MG/DL (8.5-10.1); CHLORIDE 106 MMOL/L (99-107); CREATININE 3.72 MG/DL (0.60-1.10); GLUCOSE 79 MG/DL (70-104); MAGNESIUM 1.8 MG/DL (1.5-2.4); POTASSIUM 4.3 MMOL/L (3.5-5.1); SODIUM 143 MMOL/L (135-145); TOTAL CARBON DIOXIDE 27.6 MMOL/L (24-32); TOTAL PROTEIN 4.7 G/DL (6.4-8.2); eGFR 20 ML/MIN
[2019-08-01] MEDS: pantoprazole 40 MG vial IV SCH (08:25)
[2019-08-01] MEDS: calcium carbonate 500mg chew tablet PO SCH ×2 (08:26→20:18)
[2019-08-01] MEDS: amLODIPine 5mg tablet PO SCH (08:27)
[2019-08-01] MEDS: calcitriol 0.25mcg capsule PO SCH (08:27)
[2019-08-01] MEDS: sodium bicarbonate 650mg tablet PO SCH ×2 (08:27→20:17)
[2019-08-01] MEDS: furosemide 40mg tablet PO SCH (08:28)
[2019-08-01] MEDS: atorvastatin 10mg tablet PO SCH (08:28)
[2019-08-01] MEDS: tacrolimus anhydrous 1mg capsule PO SCH ×2 (08:28→20:16)
[2019-08-01] MEDS: labetalol 100mg tablet PO SCH ×2 (08:29→20:16)
--- NOTE | 2019-08-01 13:10 | NUR ---
Transfusion VS documentation error:[id number] was documented on wrong pt, unable to delete. 1305 VS are correct.
[2019-08-01 18:13] LABS: HEMATOCRIT 25.9 % (42.0-52.0); MEAN CORPUSCULAR HEMOGLOBIN 31.6 PG (27.0-31.0); MEAN CORPUSCULAR VOLUME 90.3 FL (78-98); MEAN PLATELET VOLUME 7.6 FL (7.4-10.4); PLATELET COUNT 214 X10'3 (140-440); RED BLOOD COUNT 2.87 X10'6 (4.70-6.10); RED CELL DISTRIBUTION WIDTH 15.4 % (11.5-14.5); WHITE BLOOD COUNT 5.5 X10'3 (4.5-11.0)
--- NOTE | 2019-08-01 18:40 | NUR ---
Problems reprioritized. Patient report given, questions answered & plan of care reviewed with PRIMITIVO Layne.
--- NOTE | 2019-08-01 18:50 | NUR ---
Patient in room [facility] 3012. I have received report from and had the opportunity to ask questions and assume patient care. Addendum: 08/01/19 at 1858 by Xi De La O RN Brenda LANGFORD
--- NOTE | 2019-08-01 20:00 | NUR ---
Palpable bruit/thrill noted to L UA HD fistula.
[2019-08-01] MEDS: temazepam 15mg capsule PO PRN (21:51)
[2019-08-01] MEDS: oxyCODONE/APAP 5-325mg tablet PO PRN (21:52)
[2019-08-02] MEDS: ondansetron/PF 4mg/2ml inj IV PRN ×2 (01:55→12:05)
[2019-08-02] MEDS: oxyCODONE/APAP 5-325mg tablet PO PRN ×2 (01:56→22:31)
[2019-08-02 02:00] VITALS: BP 136/85
[2019-08-02 06:00] VITALS: BP 126/76
[2019-08-02 06:13] LABS: BASOPHILS # (AUTO) 0.1 X10'3 (0-0.2); BASOPHILS % (AUTO) 2.1 % (0-1); MEAN CORPUSCULAR HEMOGLOBIN 31.2 PG (27.0-31.0); NEUTROPHILS # (AUTO) 2.9 X10'3 (1.8-7.7); WHITE BLOOD COUNT 5.5 X10'3 (4.5-11.0)
[2019-08-02 06:14] LABS: EOSINOPHILS # (AUTO) 0.8 X10'3 (0-0.9); EOSINOPHILS % (AUTO) 13.7 % (0-6); HEMATOCRIT 25.4 % (42.0-52.0); HEMOGLOBIN 8.8 g/dl (14.0-17.9); LYMPHOCYTES # (AUTO) 1.2 X10'3 (1.1-4.8); LYMPHOCYTES % (AUTO) 21.4 % (21-51); MEAN CORPUSCULAR HGB CONC 34.4 g/dL (33.0-36.5); MEAN CORPUSCULAR VOLUME 90.5 FL (78-98); MEAN PLATELET VOLUME 7.6 FL (7.4-10.4); MONOCYTES # (AUTO) 0.5 X10'3 (0-0.9); NEUTROPHILS % (AUTO) 52.8 % (42-75); PLATELET COUNT 231 X10'3 (140-440); RED BLOOD COUNT 2.81 X10'6 (4.70-6.10); RED CELL DISTRIBUTION WIDTH 15.8 % (11.5-14.5)
[2019-08-02 06:27] LABS: ALANINE AMINOTRANSFERASE 39 U/L (12-78); ALBUMIN/GLOBULIN RATIO 0.7 (1.1-1.5); ALKALINE PHOSPHATASE 261 IU/L (46-116); ANION GAP 10 (8-16); ASPARTATE AMINO TRANSFERASE 26 U/L (10-37); BILIRUBIN,TOTAL 0.4 MG/DL (0.1-1.0); BLOOD UREA NITROGEN 43 MG/DL (7-18); BUN/CREATININE RATIO 8.7 (5.4-32.0); CHLORIDE 107 MMOL/L (99-107); CREATININE 4.96 MG/DL (0.60-1.10); GLUCOSE 94 MG/DL (70-104); MAGNESIUM 1.9 MG/DL (1.5-2.4); POTASSIUM 4.2 MMOL/L (3.5-5.1); SODIUM 143 MMOL/L (135-145); TOTAL CARBON DIOXIDE 26.5 MMOL/L (24-32); TOTAL PROTEIN 4.8 G/DL (6.4-8.2); eGFR 14 ML/MIN
--- NOTE | 2019-08-02 06:58 | NUR ---
Problems reprioritized. Patient report given, questions answered & plan of care reviewed with Demetrice LANGFORD.
[2019-08-02] MEDS: sodium bicarbonate 650mg tablet PO SCH ×2 (07:37→19:18)
[2019-08-02] MEDS: amLODIPine 5mg tablet PO SCH (07:37)
[2019-08-02] MEDS: atorvastatin 10mg tablet PO SCH (07:37)
[2019-08-02] MEDS: calcitriol 0.25mcg capsule PO SCH (07:38)
[2019-08-02] MEDS: tacrolimus anhydrous 1mg capsule PO SCH ×2 (07:38→19:17)
[2019-08-02] MEDS: labetalol 100mg tablet PO SCH ×2 (07:39→19:17)
[2019-08-02] MEDS: calcium carbonate 500mg chew tablet PO SCH ×2 (07:39→19:17)
[2019-08-02] MEDS: pantoprazole 40 MG vial IV SCH (07:40)
[2019-08-02] MEDS ORDERED: normal saline 1000ml 100 ML IV PRN (08:00)
[2019-08-02] MEDS ORDERED: epoetin 20,000 units/ml inj IV ONE (08:00)
[2019-08-02] MEDS ORDERED: LIDOcaine 1% (10mg/ml) 2ml vial SQ ONE (08:00)
[2019-08-02] MEDS ORDERED: normal saline 1000ml 250 ML IV PRN (08:00)
--- NOTE | 2019-08-02 08:57 | NUR ---
Shayna FRIEDMAN NOTIFIED OF PT'S REQUEST FOR A DIET ADVANCE.
[2019-08-02 11:00] VITALS: BP 117/72
--- NOTE | 2019-08-02 12:12 | NUR ---
Medicated with Zofran for nausea. HD nurse Brenda at bedside setting up for pt's dialysis.
--- NOTE | 2019-08-02 14:50 | NUR ---
HD still in progress. Pt. appears to be asleep with even, unlabored respirations.
[2019-08-02 15:00] VITALS: BP 97/74
--- NOTE | 2019-08-02 15:54 | NUR ---
Photo taken of open area on pt's bottom. Charge nurse notified.
--- NOTE | 2019-08-02 18:15 | NUR ---
Problems reprioritized. Patient report given, questions answered & plan of care reviewed with Mikala LANGFORD. Addendum: 08/02/19 at 1815 by Demetrice Morel RN Amended: Links added.
--- NOTE | 2019-08-02 18:35 | NUR ---
Patient in room PCU 3012. I have received report from Demetrice LANGFORD and had the opportunity to ask questions and assume patient care.
[2019-08-02 19:00] VITALS: BP 164/90
[2019-08-02 22:00] VITALS: BP 142/93
[2019-08-02] MEDS: temazepam 15mg capsule PO PRN (22:31)
[2019-08-03 02:00] VITALS: BP 135/86
--- NOTE | 2019-08-03 05:52 | NUR ---
[place] documentation: I have reviewed and agree with all interventions, assessments performed and documented by Malaika LANGFORD. [place] Medication Administration: For this medication-pass time frame, all medication were reviewed, dispensed, administered and documented per hospital policy by Malaika LANGFORD.
--- NOTE | 2019-08-03 06:10 | NUR ---
Patient in room [place] [id number]. I have received report from Augusto LANGFORD and had the opportunity to ask questions and assume patient care. Addendum: 08/03/19 at 0630 by Leticia Guerrero RN Patient in room [place] [id number]. I have received report from Mady LANGFORD NOT Augusto LANGFORD and had the opportunity to ask questions and assume patient care.
--- NOTE | 2019-08-03 06:24 | NUR ---
Problems reprioritized. Patient report given, questions answered & plan of care reviewed with Leticia LANGFORD.
[2019-08-03 06:51] VITALS: BP 135/90
[2019-08-03 07:01] LABS: BASOPHILS # (AUTO) 0.1 X10'3 (0-0.2); EOSINOPHILS # (AUTO) 0.5 X10'3 (0-0.9); HEMOGLOBIN 9.4 g/dl (14.0-17.9); LYMPHOCYTES # (AUTO) 1.1 X10'3 (1.1-4.8); LYMPHOCYTES % (AUTO) 27.4 % (21-51); MONOCYTES # (AUTO) 0.6 X10'3 (0-0.9); RED BLOOD COUNT 2.98 X10'6 (4.70-6.10)
[2019-08-03 07:04] LABS: BASOPHILS % (AUTO) 2.2 % (0-1); EOSINOPHILS % (AUTO) 12.5 % (0-6); HEMATOCRIT 27.4 % (42.0-52.0); MEAN CORPUSCULAR HEMOGLOBIN 31.5 PG (27.0-31.0); MEAN CORPUSCULAR HGB CONC 34.2 g/dL (33.0-36.5); MEAN CORPUSCULAR VOLUME 91.9 FL (78-98); MEAN PLATELET VOLUME 7.2 FL (7.4-10.4); MONOCYTES % (AUTO) 14.4 % (2-12); NEUTROPHILS # (AUTO) 1.7 X10'3 (1.8-7.7); NEUTROPHILS % (AUTO) 43.5 % (42-75); PLATELET COUNT 237 X10'3 (140-440); RED CELL DISTRIBUTION WIDTH 16.6 % (11.5-14.5)
[2019-08-03] MEDS: sodium bicarbonate 650mg tablet PO SCH (07:09)
[2019-08-03] MEDS: labetalol 100mg tablet PO SCH (07:10)
[2019-08-03] MEDS: furosemide 40mg tablet PO SCH (07:10)
[2019-08-03] MEDS: calcitriol 0.25mcg capsule PO SCH (07:10)
[2019-08-03] MEDS: calcium carbonate 500mg chew tablet PO SCH (07:10)
[2019-08-03] MEDS: amLODIPine 5mg tablet PO SCH (07:10)
[2019-08-03] MEDS: tacrolimus anhydrous 1mg capsule PO SCH (07:11)
[2019-08-03] MEDS: atorvastatin 10mg tablet PO SCH (07:11)
[2019-08-03 07:30] LABS: ALANINE AMINOTRANSFERASE 36 U/L (12-78); ALBUMIN/GLOBULIN RATIO 0.7 (1.1-1.5); ALKALINE PHOSPHATASE 263 IU/L (46-116); ANION GAP 8 (8-16); ASPARTATE AMINO TRANSFERASE 24 U/L (10-37); BILIRUBIN,TOTAL 0.4 MG/DL (0.1-1.0); BLOOD UREA NITROGEN 15 MG/DL (7-18); BUN/CREATININE RATIO 4.2 (5.4-32.0); CALCIUM 8.1 MG/DL (8.5-10.1); CHLORIDE 108 MMOL/L (99-107); CREATININE 3.59 MG/DL (0.60-1.10); GLUCOSE 89 MG/DL (70-104); MAGNESIUM 1.8 MG/DL (1.5-2.4); PHOSPHORUS 4.5 MG/DL (2.3-4.5); POTASSIUM 3.9 MMOL/L (3.5-5.1); SODIUM 145 MMOL/L (135-145); TOTAL CARBON DIOXIDE 29.4 MMOL/L (24-32); eGFR 21 ML/MIN
[2019-08-03] MEDS ORDERED: pantoprazole 40mg Tablet.DR PO SCH (07:30)
[2019-08-03 11:00] VITALS: BP 123/76
[2019-08-03 15:00] VITALS: BP 132/89
[2019-08-03] MEDS ORDERED: PANT-47 PO ×2 (15:28→15:31)
--- NOTE | 2019-08-03 16:26 | NUR ---
Patient discharge without event at this time via W/C per [facility] transit. Discharge instructions given, verbalized understanding. Called new medications into [facility] pharmacy on [address]. IV dc'd, tolerated well. Belongings sent with patient. Eager to go home.
== END 2019-08-03 16:10 | disposition home or self-care (01) | DRG 919 ==
LOC: ER 17:54 → PCU 3S 21:45
PROVIDERS: ADMIT Internal Medicine Critical Care Medicine; ATTEND Internal Medicine Critical Care Medicine
PROC: 30233N1 Transfusion of Nonautologous Red Blood Cells into Peripheral Vein, Percutaneous Approach (ICD-10-PCS; 2019-07-30)
PROC: 30233N1 Transfusion of Nonautologous Red Blood Cells into Peripheral Vein, Percutaneous Approach (ICD-10-PCS; 2019-07-31)
PROC: 0W3P8ZZ Control Bleeding in Gastrointestinal Tract, Via Natural or Artificial Opening Endoscopic (ICD-10-PCS; 2019-07-31)
PROC: 0F798DZ Dilation of Common Bile Duct with Intraluminal Device, Via Natural or Artificial Opening Endoscopic (ICD-10-PCS; 2019-07-31)
PROC: BF101ZZ Fluoroscopy of Bile Ducts using Low Osmolar Contrast (ICD-10-PCS; 2019-07-31)
PROC: 5A1D70Z Performance of Urinary Filtration, Intermittent, Less than 6 Hours Per Day (ICD-10-PCS; 2019-07-31)
PROC: 30233N1 Transfusion of Nonautologous Red Blood Cells into Peripheral Vein, Percutaneous Approach (ICD-10-PCS; principal; 2019-08-01)
PROC: 5A1D70Z Performance of Urinary Filtration, Intermittent, Less than 6 Hours Per Day (ICD-10-PCS; 2019-08-01)
PROC: 5A1D70Z Performance of Urinary Filtration, Intermittent, Less than 6 Hours Per Day (ICD-10-PCS; 2019-08-02)
DX: K91.840 Postprocedural hemorrhage of a digestive system organ or structure following a digestive system procedure (principal); K26.4 Chronic or unspecified duodenal ulcer with hemorrhage; N18.6 End stage renal disease; Z94.0 Kidney transplant status; D62 Acute posthemorrhagic anemia; Y83.8 Other surgical procedures as the cause of abnormal reaction of the patient, or of later complication, without mention of misadventure at the time of the procedure; Y82.8 Other medical devices associated with adverse incidents; Z99.2 Dependence on renal dialysis; Z90.49 Acquired absence of other specified parts of digestive tract; Z90.5 Acquired absence of kidney; Z88.0 Allergy status to penicillin; Z91.040 Latex allergy status; Z91.018 Allergy to other foods; Z79.899 Other long term (current) drug therapy; Y92.89 Other specified places as the place of occurrence of the external cause
CPT/HCPCS: 36415; 43243; 43255; 43274; 71045; 80053; 82272; 83690; 83735; 84100; 84484; 85025; 85027; 85610; 85730; 86885; 86900; 86901; 86920; 86945; 87081; 90935; 93005; 96361; 96374; 99152; 99153; 99291; A4620; C1769; C9113; G0257; G0378; J0171; J1170; J1610; J2001; J2250; J2405; J3010; J7040; J7507; P9016; Q4081; Q9967

== ENCOUNTER 2019-08-28 09:47 | Day surgery (SDC) | payer MEDICARE, MEDICAID ==
[~2019-08-28] VITALS: Ht 170.2 cm; Wt 79.5 kg
[2019-08-28] VITALS (7 sets, daily range): BP systolic 143–169; BP diastolic 85–110
[~2019-08-28 09:47] MED LIST changes: -CARV-49 PO; -FERR324T4 PO; +LABE100T5 PO; -LABE300T2 PO; -ONDA4TAB6 PO; +PANT-47 PO; -PER5325T PO
[2019-08-28] MEDS ORDERED: glucagon, human recombinant 1mg kit ONE (10:31)
[2019-08-28] MEDS ORDERED: iohexol 300 MG/1 ML 50ml polymer ONE (10:31)
[2019-08-28] MEDS ORDERED: LIDOcaine Viscous 15ml cup ONE (10:31)
[2019-08-28] MEDS ORDERED: MIDAZolam 5mg/5ml vial ONE (10:31)
[2019-08-28] MEDS ORDERED: fentaNYL/PF 50MCG/1 ML 2ML syringe ONE (10:31)
== END 2019-08-28 12:38 | disposition home or self-care (01) ==
LOC: GI LAB 09:47
PROVIDERS: ATTEND Internal Medicine Gastroenterology
DX: Z46.59 Encounter for fitting and adjustment of other gastrointestinal appliance and device (principal); K83.8 Other specified diseases of biliary tract; Z79.899 Other long term (current) drug therapy
CPT/HCPCS: 43264; 43275; 99153; C1769; C1773; G0500; J1610; J2250; J3010; J7040; Q9967; 43276; 99152; A4620

== ENCOUNTER 2020-01-26 20:41 | Emergency (ER) | payer MEDICARE, MEDICAID ==
[~2020-01-26] VITALS: Ht 167.6 cm; Wt 63.6 kg
--- NOTE | 2020-01-26 21:00 | NUR ---
REC'D CALL FROM MD HALL WHO STATES THE FOLLOWING: "THE PT WAS INAPPROPRIATELY SENT TO ER FROM [facility] TODAY AFTER FINISHING DIALYSIS" THEY TOOK 5KG OFF. HE STATES PT WAS RECENTLY STARTED ON GABAPENTIN AND HAS BEEN DRINKING 5L OF WATER A DAY. HE WANTS THE PT TO HAVE A FLU SWAB. HE STATES HE WILL NOT ADMIT THE PATIENT. HE ALSO WANTS THE PT TO LIMIT HIS FLUIDS AND STOP THE GABAPENTIN AND GO TO DIALYSIS AGAIN TOMORROW.
[2020-01-26 21:21] LABS: BASOPHILS # (AUTO) 0.1 X10'3 (0-0.2); EOSINOPHILS # (AUTO) 0.3 X10'3 (0-0.9); HEMOGLOBIN 10.7 g/dl (14.0-17.9); LYMPHOCYTES # (AUTO) 0.8 X10'3 (1.1-4.8); LYMPHOCYTES % (AUTO) 20.4 % (21-51); MONOCYTES # (AUTO) 0.5 X10'3 (0-0.9); WHITE BLOOD COUNT 3.7 X10'3 (4.5-11.0)
[2020-01-26 21:22] LABS: BASOPHILS % (AUTO) 1.4 % (0-1); EOSINOPHILS % (AUTO) 8.5 % (0-6); HEMATOCRIT 30.6 % (42.0-52.0); MEAN CORPUSCULAR VOLUME 94.3 FL (78-98); MONOCYTES % (AUTO) 14.7 % (2-12); PLATELET COUNT 145 X10'3 (140-440); RED BLOOD COUNT 3.25 X10'6 (4.70-6.10); RED CELL DISTRIBUTION WIDTH 14.3 % (11.5-14.5)
[2020-01-26 21:35] LABS: ALANINE AMINOTRANSFERASE 21 U/L (12-78); ALBUMIN/GLOBULIN RATIO 0.8 (1.1-1.5); ALKALINE PHOSPHATASE 229 IU/L (46-116); ANION GAP 8 (8-16); ASPARTATE AMINO TRANSFERASE 22 U/L (10-37); BLOOD UREA NITROGEN 24 MG/DL (7-18); BUN/CREATININE RATIO 5.6 (5.4-32.0); CALCIUM 8.8 MG/DL (8.5-10.1); CHLORIDE 104 MMOL/L (99-107); CREATININE 4.28 MG/DL (0.60-1.10); GLUCOSE 98 MG/DL (70-104); POTASSIUM 3.6 MMOL/L (3.5-5.1); SODIUM 143 MMOL/L (135-145); TOTAL CARBON DIOXIDE 30.9 MMOL/L (24-32); TOTAL PROTEIN 6.6 G/DL (6.4-8.2); eGFR 17 ML/MIN
--- NOTE | 2020-01-26 21:36 | NUR ---
Patient resting comfortably on gurney, labs pending
--- NOTE | 2020-01-26 23:57 | NUR ---
DUSTIN DELCID REQUESTED PER PT TO CALL PT MOM TO BEDSIDE PT CELL PHONE HAS . PT REPORTS HE WOULD LIKE US TO CALL JEANINE , HIS MOTHER AT [phone] IN [place] TO COME TO BEDSIDE . MOM PHONED AND SHE STATES SHE WILL BE HERE SOON SHE CAN SHE IS COMING FROM [place]
[2020-01-27 01:14] VITALS: BP 140/98
== END 2020-01-27 01:10 | disposition home or self-care (01) ==
LOC: ER 20:41
DX: R07.89 Other chest pain (principal); N18.6 End stage renal disease; J06.9 Acute upper respiratory infection, unspecified; B97.89 Other viral agents as the cause of diseases classified elsewhere; Z90.49 Acquired absence of other specified parts of digestive tract; Z99.2 Dependence on renal dialysis; Z90.5 Acquired absence of kidney; Z88.0 Allergy status to penicillin; Z91.040 Latex allergy status; Z79.899 Other long term (current) drug therapy
CPT/HCPCS: 36415; 71045; 80053; 84484; 85025; 87502; 87503; 93005; 99285

== ENCOUNTER 2020-11-16 09:27 | Emergency (ER) | payer MEDICARE, MEDICAID ==
[~2020-11-16] VITALS: Ht 172.7 cm; Wt 60.0 kg
[~2020-11-16 09:27] MED LIST changes: +TACR1CAP24 PO; -TACR1CAP28 PO
[2020-11-16] MEDS ORDERED: normal saline 1000ML IV soln IV ONE (10:00)
--- NOTE | 2020-11-16 10:27 | NUR ---
ultrasound at bedside.
[2020-11-16 10:54] LABS: BASOPHILS # (AUTO) 0.1 X10'3 (0-0.2); BASOPHILS % (AUTO) 1.1 % (0-1); EOSINOPHILS # (AUTO) 0.5 X10'3 (0-0.9); EOSINOPHILS % (AUTO) 5.4 % (0-6); HEMATOCRIT 30.6 % (42.0-52.0); HEMOGLOBIN 10.6 g/dl (14.0-17.9); LYMPHOCYTES # (AUTO) 1.7 X10'3 (1.1-4.8); LYMPHOCYTES % (AUTO) 16.6 % (21-51); MEAN CORPUSCULAR HEMOGLOBIN 33.6 PG (27.0-31.0); MEAN CORPUSCULAR HGB CONC 34.7 g/dL (33.0-36.5); MEAN CORPUSCULAR VOLUME 96.6 FL (78-98); MEAN PLATELET VOLUME 6.9 FL (7.4-10.4); MONOCYTES # (AUTO) 1.1 X10'3 (0-0.9); MONOCYTES % (AUTO) 10.7 % (2-12); NEUTROPHILS # (AUTO) 6.6 X10'3 (1.8-7.7); NEUTROPHILS % (AUTO) 66.2 % (42-75); PLATELET COUNT 238 X10'3 (140-440); RED BLOOD COUNT 3.17 X10'6 (4.70-6.10); RED CELL DISTRIBUTION WIDTH 16.7 % (11.5-14.5)
[2020-11-16 11:04] LABS: ALANINE AMINOTRANSFERASE 18 U/L (12-78); ALBUMIN 3.5 G/DL (3.4-5.0); ALBUMIN/GLOBULIN RATIO 0.9 (1.1-1.5); ALKALINE PHOSPHATASE 144 IU/L (46-116); ANION GAP 8 (8-16); ASPARTATE AMINO TRANSFERASE 21 U/L (10-37); BILIRUBIN,TOTAL 0.6 MG/DL (0.1-1.0); BLOOD UREA NITROGEN 20 MG/DL (7-18); BUN/CREATININE RATIO 3.5 (5.4-32.0); CALCIUM 8.5 MG/DL (8.5-10.1); CHLORIDE 101 MMOL/L (99-107); CREATININE 5.64 MG/DL (0.60-1.10); GLUCOSE 115 MG/DL (70-104); POTASSIUM 4.7 MMOL/L (3.5-5.1); SODIUM 138 MMOL/L (135-145); TOTAL CARBON DIOXIDE 29.2 MMOL/L (24-32); TOTAL PROTEIN 7.5 G/DL (6.4-8.2); eGFR 12 ML/MIN
[2020-11-16] MEDS ORDERED: HYDROcodone/acetaminophen 10/325mg tab PO ONE (11:30)
[2020-11-16] MEDS ORDERED: CefTRIAXone 2gm/D5W 50ml BAG 50 ML IV ONE (11:55)
[2020-11-16] MEDS ORDERED: CefTRIAXone/D5W-Rocephin 1gm 50 ML IV ONE (12:00)
[2020-11-16 12:30] VITALS: BP 179/112
[2020-11-16] MEDS ORDERED: CEPH-572 PO (12:39)
--- NOTE | 2020-11-16 13:02 | NUR ---
pt does not produce urin. asad dempsey notified.
[2020-11-16] MEDS ORDERED: HYDR-3965 PO (13:35)
== END 2020-11-16 13:57 | disposition home or self-care (01) ==
LOC: ER 09:27
DX: N99.89 Other postprocedural complications and disorders of genitourinary system (principal); N19 Unspecified kidney failure; Z90.49 Acquired absence of other specified parts of digestive tract; Z94.0 Kidney transplant status; Z88.0 Allergy status to penicillin; Z91.040 Latex allergy status; Z79.2 Long term (current) use of antibiotics; Z79.899 Other long term (current) drug therapy; N50.82 Scrotal pain; N50.89 Other specified disorders of the male genital organs
CPT/HCPCS: 36415; 71045; 76870; 80053; 83605; 83735; 84145; 85025; 87040; 93005; 93976; 96365; 99285; J0696

== ENCOUNTER → 2021-10-14 | Emergency (ER) | payer MEDICARE, MEDICAID ==
[~2021-10-14] VITALS: Ht 172.7 cm; Wt 79.5 kg
[~2021-10-14] MED LIST changes: -AMLO10TA4 PO; -CALC0.258 PO; -CALC500T11 PO; +CLON0.2T PO; +FAMO40TA7 PO; -FURO80TA3 PO; +GABA-530 PO; +HYDR-3686 PO; -LABE100T5 PO; -LISI-600 PO; +MELA3TAB39 PO; +OMEP40CA21 PO; -PANT-47 PO; +PHO667C PO; -PRAV20TA PO; +SACU1TAB4 PO; -SIRO1TAB6 PO; -SODI650T29 PO; +TACR1CAP PO; -TACR1CAP24 PO
[2021-10-14 11:20] VITALS: BP 146/83
[2021-10-14 12:58] LABS: BASOPHILS # (AUTO) 0.1 X10'3 (0-0.2); BASOPHILS % (AUTO) 1.2 % (0-1); EOSINOPHILS # (AUTO) 0.5 X10'3 (0-0.9); EOSINOPHILS % (AUTO) 10.9 % (0-6); HEMATOCRIT 29.3 % (42.0-52.0); HEMOGLOBIN 10.4 g/dl (14.0-17.9); LYMPHOCYTES # (AUTO) 0.8 X10'3 (1.1-4.8); LYMPHOCYTES % (AUTO) 16.6 % (21-51); MEAN CORPUSCULAR HEMOGLOBIN 32.7 PG (27.0-31.0); MEAN CORPUSCULAR HGB CONC 35.3 g/dL (33.0-36.5); MEAN CORPUSCULAR VOLUME 92.7 FL (78-98); MEAN PLATELET VOLUME 7.5 FL (7.4-10.4); MONOCYTES # (AUTO) 0.6 X10'3 (0-0.9); MONOCYTES % (AUTO) 13.7 % (2-12); NEUTROPHILS # (AUTO) 2.7 X10'3 (1.8-7.7); NEUTROPHILS % (AUTO) 57.6 % (42-75); PLATELET COUNT 167 X10'3 (140-440); RED BLOOD COUNT 3.16 X10'6 (4.70-6.10); RED CELL DISTRIBUTION WIDTH 13.4 % (11.5-14.5); WHITE BLOOD COUNT 4.7 X10'3 (4.5-11.0)
[2021-10-14 13:25] LABS: ALANINE AMINOTRANSFERASE 20 U/L (12-78); ALBUMIN 2.4 G/DL (3.4-5.0); ALBUMIN/GLOBULIN RATIO 0.7 (1.1-1.5); ALKALINE PHOSPHATASE 178 IU/L (46-116); ANION GAP 8 (8-16); ASPARTATE AMINO TRANSFERASE 21 U/L (10-37); BILIRUBIN,TOTAL 0.5 MG/DL (0.1-1.0); BLOOD UREA NITROGEN 14 MG/DL (7-18); BUN/CREATININE RATIO 3.6 (5.4-32.0); CALCIUM 8.1 MG/DL (8.5-10.1); CHLORIDE 104 MMOL/L (99-107); CREATININE 3.94 MG/DL (0.60-1.10); GLUCOSE 123 MG/DL (70-104); SODIUM 143 MMOL/L (135-145); TOTAL CARBON DIOXIDE 30.9 MMOL/L (24-32); TOTAL PROTEIN 5.8 G/DL (6.4-8.2); eGFR 19 ML/MIN
[2021-10-14 13:27] LABS: POTASSIUM 3.9 MMOL/L (3.5-5.1)
== END | disposition home or self-care (01) ==
LOC: ER 11:03
DX: J06.9 Acute upper respiratory infection, unspecified (principal); J81.1 Chronic pulmonary edema; J90 Pleural effusion, not elsewhere classified
CPT/HCPCS: 36415; 71045; 80053; 85025; 99284

== ENCOUNTER 2021-12-04 09:17 | Emergency (ER) | payer MEDICARE, MEDICAID ==
[~2021-12-04] VITALS: Ht 172.7 cm; Wt 79.5 kg
[2021-12-04 10:43] LABS: BASOPHILS # (AUTO) 0.1 X10'3 (0-0.2); BASOPHILS % (AUTO) 0.9 % (0-1); EOSINOPHILS # (AUTO) 0.2 X10'3 (0-0.9); EOSINOPHILS % (AUTO) 2.8 % (0-6); HEMATOCRIT 34.6 % (42.0-52.0); HEMOGLOBIN 11.8 g/dl (14.0-17.9); LYMPHOCYTES # (AUTO) 0.7 X10'3 (1.1-4.8); LYMPHOCYTES % (AUTO) 12.4 % (21-51); MEAN CORPUSCULAR HEMOGLOBIN 32.3 PG (27.0-31.0); MEAN CORPUSCULAR HGB CONC 34.2 g/dL (33.0-36.5); MEAN CORPUSCULAR VOLUME 94.4 FL (78-98); MEAN PLATELET VOLUME 7.6 FL (7.4-10.4); MONOCYTES # (AUTO) 0.7 X10'3 (0-0.9); MONOCYTES % (AUTO) 11.3 % (2-12); NEUTROPHILS # (AUTO) 4.3 X10'3 (1.8-7.7); NEUTROPHILS % (AUTO) 72.6 % (42-75); PLATELET COUNT 141 X10'3 (140-440); RED BLOOD COUNT 3.67 X10'6 (4.70-6.10); RED CELL DISTRIBUTION WIDTH 14.1 % (11.5-14.5); WHITE BLOOD COUNT 5.9 X10'3 (4.5-11.0)
[2021-12-04 11:10] LABS: ALANINE AMINOTRANSFERASE 21 U/L (12-78); ALBUMIN 2.7 G/DL (3.4-5.0); ALBUMIN/GLOBULIN RATIO 0.8 (1.1-1.5); ALKALINE PHOSPHATASE 136 IU/L (46-116); ANION GAP 16 (8-16); ASPARTATE AMINO TRANSFERASE 24 U/L (10-37); BILIRUBIN,TOTAL 1.4 MG/DL (0.1-1.0); BLOOD UREA NITROGEN 78 MG/DL (7-18); BUN/CREATININE RATIO 8.2 (5.4-32.0); CALCIUM 9.1 MG/DL (8.5-10.1); CHLORIDE 99 MMOL/L (99-107); CREATININE 9.56 MG/DL (0.60-1.10); GLUCOSE 91 MG/DL (70-104); POTASSIUM 5.6 MMOL/L (3.5-5.1); SODIUM 138 MMOL/L (135-145); TOTAL CARBON DIOXIDE 23.2 MMOL/L (24-32); TOTAL PROTEIN 5.9 G/DL (6.4-8.2); eGFR 7 ML/MIN
[2021-12-04 12:13] VITALS: BP 160/95
== END 2021-12-04 13:02 | disposition home or self-care (01) ==
LOC: ER 09:17
DX: R06.03 Acute respiratory distress (principal); Z20.822 Contact with and (suspected) exposure to COVID-19; R05.9 Cough, unspecified; R50.9 Fever, unspecified; Z87.440 Personal history of urinary (tract) infections; Z90.49 Acquired absence of other specified parts of digestive tract; Z98.890 Other specified postprocedural states; Z88.0 Allergy status to penicillin; Z91.040 Latex allergy status; Z79.899 Other long term (current) drug therapy
CPT/HCPCS: 36415; 71045; 80053; 83605; 83880; 85025; 87040; 87635; 99284; C9803

== ENCOUNTER 2023-05-27 15:35 | Emergency (ER) | payer MEDICARE, MEDICAID ==
[~2023-05-27] VITALS: Ht 172.7 cm; Wt 75.0 kg
[2023-05-27] MEDS ORDERED: methylPREDNISolone sod succ 125mg/2ml vial IV ONE (16:35)
[2023-05-27 16:37] LABS: BASOPHILS # (AUTO) 0.1 X10'3 (0-0.2); BASOPHILS % (AUTO) 1.9 % (0-1); EOSINOPHILS # (AUTO) 0.5 X10'3 (0-0.9); EOSINOPHILS % (AUTO) 8.3 % (0-6); HEMOGLOBIN 11.5 g/dl (14.0-17.9); LYMPHOCYTES # (AUTO) 1.1 X10'3 (1.1-4.8); LYMPHOCYTES % (AUTO) 18.9 % (21-51); MEAN CORPUSCULAR HEMOGLOBIN 32.8 PG (27.0-31.0); MEAN CORPUSCULAR HGB CONC 33.8 g/dL (33.0-36.5); MEAN CORPUSCULAR VOLUME 97.2 FL (78-98); MEAN PLATELET VOLUME 8.2 FL (7.4-10.4); MONOCYTES # (AUTO) 0.5 X10'3 (0-0.9); MONOCYTES % (AUTO) 8.8 % (2-12); NEUTROPHILS # (AUTO) 3.5 X10'3 (1.8-7.7); NEUTROPHILS % (AUTO) 62.1 % (42-75); PLATELET COUNT 133 X10'3 (140-440); RED CELL DISTRIBUTION WIDTH 14.7 % (11.5-14.5); WHITE BLOOD COUNT 5.6 X10'3 (4.5-11.0)
[2023-05-27 16:46] LABS: ALANINE AMINOTRANSFERASE 19 U/L (12-78); ALBUMIN 2.7 G/DL (3.4-5.0); ALBUMIN/GLOBULIN RATIO 0.8 (1.1-1.5); ALKALINE PHOSPHATASE 197 IU/L (46-116); ANION GAP 16 (8-16); ASPARTATE AMINO TRANSFERASE 22 U/L (10-37); BILIRUBIN,TOTAL 0.7 MG/DL (0.1-1.0); BLOOD UREA NITROGEN 81 MG/DL (7-18); BUN/CREATININE RATIO 6.7 (10.0-20.0); CALCIUM 7.5 MG/DL (8.5-10.1); CHLORIDE 99 MMOL/L (99-107); CREATININE 12.17 MG/DL (0.60-1.10); GLUCOSE 107 MG/DL (70-104); POTASSIUM 4.7 MMOL/L (3.5-5.1); SODIUM 138 MMOL/L (135-145); TOTAL CARBON DIOXIDE 23.2 MMOL/L (24-32); TOTAL PROTEIN 6.2 G/DL (6.4-8.2); eGFR 5 ML/MIN
--- NOTE | 2023-05-27 16:56 | NUR ---
pt refusing solumedrol at this time, Dr. Tomas notified, he will speak with the patient. pt expressing desire to leave the er immediately, aware of this
[2023-05-27] MEDS ORDERED: BUDE10.7 INH (17:11)
[2023-05-27] MEDS ORDERED: ATRIN INH (17:11)
[2023-05-27] MEDS ORDERED: ALBU6.7H14 INH (17:11)
[2023-05-27 17:18] VITALS: BP 179/128
== END 2023-05-27 17:20 | disposition home or self-care (01) ==
LOC: MERGE 15:36 → ER 15:36
DX: J45.901 Unspecified asthma with (acute) exacerbation (principal); Z88.0 Allergy status to penicillin; Z91.040 Latex allergy status
CPT/HCPCS: 36415; 71045; 80053; 83880; 84484; 85025; 99284

== ENCOUNTER 2024-05-21 11:28 | Day surgery (SDC) | payer MEDICARE, MEDICAID ==
[~2024-05-21] VITALS: Ht 172.7 cm; Wt 79.5 kg
[~2024-05-21 11:28] MED LIST changes: +ALBU6.7H14 INH; +ATRIN INH; +BUDE10.7 INH
[2024-05-21] MEDS ORDERED: diphenhydrAMINE 50 mg/ml inj ONE (12:47)
[2024-05-21] MEDS ORDERED: LIDOcaine 2% Viscous 15ml cup ONE (12:47)
[2024-05-21] MEDS ORDERED: MIDAZolam 1 MG/ML 5ML VIAL ONE (13:01)
[2024-05-21] MEDS ORDERED: fentaNYL/PF 50MCG/1 ML 2ML syringe ONE (13:01)
[2024-05-21 13:24] VITALS: BP 150/88; PULSE 91; RESP 17; O2SAT 96
[2024-05-21 13:34] VITALS: BP 165/71; PULSE 90; RESP 17; O2SAT 95
[2024-05-21 13:44] VITALS: BP 155/86; PULSE 91; RESP 20; O2SAT 96
[2024-05-21 13:54] VITALS: BP 159/90; PULSE 89; RESP 20; O2SAT 95
== END 2024-05-21 14:05 | disposition home or self-care (01) ==
LOC: GI LAB 11:28
PROVIDERS: ATTEND Internal Medicine Gastroenterology
DX: R13.10 Dysphagia, unspecified (principal); K21.00 Gastro-esophageal reflux disease with esophagitis, without bleeding; K29.70 Gastritis, unspecified, without bleeding; K31.7 Polyp of stomach and duodenum
CPT/HCPCS: 43239; A4620; J1200; J2250; J3010; J7030; Z7512; 43251; 99152; C1889